=== PATIENT | female | born 1965 | race Caucasian/White ===

== ENCOUNTER → 2017-01-12 | Outpatient (CLI) | payer BC ==
--- NOTE | 2017-01-12 09:32 | FL ---
EXAMINATION TYPE: FL barium swallow DATE OF EXAM ORDERED: 01/12/2017 9:24 AM HISTORY: Dysphagia. COMPARISON: None. FINDINGS: The patient swallowed barium of these. The esophagus distended normally with air and bariu m without evidence of obstruction or constricting disease. There is a mild cricopharyngeus indentatio n the posterior esophagus. There are mild degenerative changes in the cervical spine. The mucosal pattern throughout the esophagus is unremarkable. There is no evidence of hiatal hernia. Limited views of the stomach are normal. Note is made of significant reflux. IMPRESSION: 1. MINIMAL PARAPHARYNGEAL ACHALASIA. 2. SIGNIFICANT REFLUX.
== END | disposition home or self-care (01) ==
LOC: RADFLWHC 08:42
PROVIDERS: ATTEND Surgery
DX: K22.0 Achalasia of cardia (principal); K21.9 Gastro-esophageal reflux disease without esophagitis
CPT/HCPCS: 74220

== ENCOUNTER 2017-01-26 09:50 | Day surgery (SDC) | payer BC ==
[2017-01-22 15:02] VITALS: BMI 30.2
[~2017-01-26 09:50] MED LIST: LACTATED RINGERS 1,000 ML IV SCH; LIDOCAINE 1% 20 ML VIAL (10MG/ML) FOR IV START INTRADERMA PRN
[2017-01-26 10:16] VITALS: RESP 16; TEMP 98.6
[2017-01-26] MEDS ORDERED: PROPOFOL 10 MG/ML 20 ML VIAL IV ONE (10:26)
[2017-01-26] MEDS ORDERED: LIDOCAINE 1% INJ 10MG/ML (20 ML MDV) ONE (10:26)
--- NOTE | 2017-01-26 10:28 | P.GSHP ---
History of Present Illness H&P Date: 01/26/17 Chief Complaint: GERD, screening colonoscopy 51-year-old female who's had some issues with GERD. Patient resents today for EGD. She is also having screening colonoscopy. He has a strong family history of colon cancer. - Constitutional Constitutional: Reports as per HPI Past Medical History Past Medical History: Fibromyalgia, GERD/Reflux, Hyperlipidemia Additional Past Medical History / Comment(s): diarrhea for 2 weeks hx migraines , palpitations, varicose veins, hx ulcer, hiatal hernia, frequent diarrhea, ankylosing spondylitis History of Any Multi-Drug Resistant Organisms: None Reported Past Surgical History: Orthopedic Surgery, Tonsillectomy Additional Past Surgical History / Comment(s): Eli fundoplication, reconstruction left ankle, manipulation rt shoulder Past Anesthesia/Blood Transfusion Reactions: Motion Sickness, Postoperative Nausea & Vomiting (PONV) Additional Past Anesthesia/Blood Transfusion Reaction / Comment(s): no hx blood transfusion Past Psychological History: No Psychological Hx Reported Smoking Status: Never smoker Past Alcohol Use History: Occasional Past Drug Use History: None Reported - Past Family History Father Family Medical History: Deep Vein Thrombosis (DVT) Mother Family Medical History: COPD Medications and Allergies Home Medications Medication Instructions Recorded Confirmed Type Ibuprofen [Motrin] 800 mg PO Q6HR PRN 02/06/16 01/22/17 History Multivit with Calcium,Iron,Min 1 each PO DAILY 02/06/16 01/22/17 History [Women's Daily Multivitamin] Omeprazole 40 mg PO DAILY 03/05/16 01/26/17 History Allergies Allergy/AdvReac Type Severity Reaction Status Date / Time aspirin Allergy Rash/Hives Verified 01/22/17 14:55 Penicillins Allergy Rash/Hives Verified 01/22/17 14:55 Sulfa (Sulfonamide Allergy Rash/Hives Verified 01/22/17 14:55 Antibiotics) lactose AdvReac Severe GI problems Verified 01/22/17 14:55 Surgical - Exam Vital Signs Temp Pulse Resp BP Pulse Ox 98.6 F 64 16 134/85 99 01/26/17 10:15 01/26/17 10:15 01/26/17 10:15 01/26/17 10:15 01/26/17 10:15 - General well developed, no distress - Eyes PERRL - ENT normal pinna - Neck no masses - Respiratory normal expansion - Cardiovascular Rhythm: regular - Abdomen Abdomen: soft, non tender Assessment and Plan Plan: GERD we'll perform EGD. We'll perform screening colonoscopy.
--- NOTE | 2017-01-26 10:46 | P.OP ---
Date of Procedure: 01/26/17 Preoperative Diagnosis: GERD Screening colonoscopy Postoperative Diagnosis: Mild antral gastritis No evidence of GE junction stricture Mild diverticulosis Procedure(s) Performed: EGD Colonoscopy Implants: Anesthesia: MAC Surgeon: Ron Jaquez Pathology: other (Antrum) Condition: stable Disposition: PACU Indications for Procedure: Operative Findings: Description of Procedure: The patient's placed on the endoscopy table in the lateral position. She received IV sedation. The gastric was placed oropharynx and passed into the esophagus and into the stomach. Scope was then placed through the pylorus. The first and second portion of the duodenum appeared normal. Scope was then brought back the antrum and this was mildly inflamed a biopsies performed. The scope was unretroflexed and remainder some appeared normal. The patient a previous fundal plication wrap and this appeared to be in the appropriate position. Due the patient's symptoms and dysphagia a 20 mm balloon was placed across the GE junction the balloon was able to slide back and forth around the GE junction. There is no evidence of any gastric inlet obstruction. The distal esophagus appeared normal. The proximal esophagus normal. Scope was withdrawn for patient. Next digital rectal exam was performed which revealed no abnormalities. The flexible colonoscope was then placed patient anus and passed throughout the entire colon. The ileocecal valve was visualized. The cecum, ascending and transverse colon appeared normal. In the descending; was mild diverticular changes. The scope was then brought back the rectum and this appeared normal. Scope was withdrawn for patient.
[2017-01-26 11:45] VITALS: BP 121/70; PULSE 67
== END 2017-01-26 11:44 | disposition home or self-care (01) ==
LOC: ORWHC2ENDO 09:50
PROVIDERS: ATTEND Surgery
DX: Z12.11 Encounter for screening for malignant neoplasm of colon (principal); K29.50 Unspecified chronic gastritis without bleeding; K57.30 Diverticulosis of large intestine without perforation or abscess without bleeding; R13.10 Dysphagia, unspecified; M79.7 Fibromyalgia; E78.5 Hyperlipidemia, unspecified; R19.7 Diarrhea, unspecified; K21.9 Gastro-esophageal reflux disease without esophagitis; Z80.0 Family history of malignant neoplasm of digestive organs; Z79.899 Other long term (current) drug therapy; Z88.6 Allergy status to analgesic agent; Z88.0 Allergy status to penicillin; Z88.2 Allergy status to sulfonamides; Z98.890 Other specified postprocedural states
CPT/HCPCS: 88305; 88342; 43239; 43249; J2001; J2704; C1726; G0105

== ENCOUNTER → 2017-01-28 | Outpatient (CLI) | payer BC ==
--- NOTE | 2017-01-28 11:29 | MR ---
MR pelvis without contrast HISTORY: Pelvic pain No comparisons Multiplanar multisequence imaging through the pelvis. Bone marrow signal is maintained. Sacroiliac joints show no erosions, ankylosis, or marrow edema. Td e fluid is present within the pelvis. Uterus and ovaries are within normal limits. Some free fluid is noted. The colon and small bowel show wall thickening. No evident inguinal or pelvic adenopathy. Deg enerative disc changes at the lumbosacral junction. IMPRESSION: Correlate for enteritis, colitis, consider gastroenterology consult. There is some free f luid in the pelvis.
== END | disposition home or self-care (01) ==
LOC: RADMRIMAIN 10:12
PROVIDERS: ATTEND Internal Medicine Rheumatology
DX: K52.9 Noninfective gastroenteritis and colitis, unspecified (principal); H20.13 Chronic iridocyclitis, bilateral; M54.5 Low back pain; Z15.89 Genetic susceptibility to other disease
CPT/HCPCS: 72195

== ENCOUNTER → 2018-01-12 | Outpatient (CLI) | payer BC ==
[2018-01-12 07:57] LABS: HGB 12.7 gm/dL (11.4-16.0); MCH 31.8 pg (25.0-35.0); MCHC 33.4 g/dL (31.0-37.0); MCV 95.2 fL (80.0-100.0); Mean Platelet Volume 7.1; Platelet Count 349 k/uL (150-450); RBC 3.99 m/uL (3.80-5.40); RDW 12.5 % (11.5-15.5); WBC 6.4 k/uL (3.8-10.6)
[2018-01-12 08:00] LABS: Appearance,Urine Cloudy (Clear); Bilirubin,Urine Negative (Negative); Blood,Urine Negative (Negative); Color,Urine Yellow; Glucose,Urine (UA) Negative (Negative); Ketones,Urine Negative (Negative); Leukocyte Esterase,Urine Large (Negative); Mucus,Urine Occasional /hpf; Nitrite,Urine Negative (Negative); Protein,Urine Negative (Negative); RBC,Urine 5 /hpf (0-5); Specific Gravity,Urine 1.018 (1.001-1.035); Squamous Epithelial Cell,Urine 3 /hpf (0-4); Urobilinogen,Urine <2.0 mg/dL (<2.0); WBC,Urine 21 /hpf (0-5)
[2018-01-12 08:20] LABS: ALT 27 U/L (9-52); AST 25 U/L (14-36); Albumin 4.7 g/dL (3.5-5.0); Alkaline Phosphatase 69 U/L (38-126); Anion Gap 12 mmol/L; Blood Urea Nitrogen 17 mg/dL (7-17); Calcium 9.6 mg/dL (8.4-10.2); Carbon Dioxide 29 mmol/L (22-30); Chloride 104 mmol/L (98-107); Cholesterol 277 mg/dL (<200); Glucose 93 mg/dL (74-99); HDL Cholesterol 63 mg/dL (40-60); LDL Cholesterol,Calculated 182 mg/dL (0-99); Potassium 4.4 mmol/L (3.5-5.1); Sodium 145 mmol/L (137-145); Total Bilirubin 0.5 mg/dL (0.2-1.3); Total Protein 7.5 g/dL (6.3-8.2); Triglycerides 159 mg/dL (<150)
--- NOTE | 2018-01-12 08:34 | XR ---
EXAMINATION TYPE: XR chest 2V DATE OF EXAM: 01/12/2018 COMPARISON: NONE HISTORY: Palpitations, heart disease TECHNIQUE: Frontal and lateral views of the chest are obtained. FINDINGS: There is no focal air space opacity, pleural effusion, or pneumothorax seen. The cardiac silhouette size is within normal limits. There is a spinal curvature. Degenerative disc disease not ed in the visualized spine. The osseous structures are intact. IMPRESSION: No acute cardiopulmonary process.
== END | disposition home or self-care (01) ==
LOC: LABWHC1 07:18
PROVIDERS: ATTEND Family Medicine
DX: R00.2 Palpitations (principal); I25.10 Atherosclerotic heart disease of native coronary artery without angina pectoris; R60.9 Edema, unspecified
CPT/HCPCS: 36415; 71046; 80053; 80061; 81001; 84439; 84443; 84484; 85027; 85379

== ENCOUNTER → 2018-01-26 | Outpatient (CLI) | payer BC | END | disposition home or self-care (01) | LOC: RADECHMAIN 12:13 | PROVIDERS: ATTEND Family Medicine | DX: R00.2 Palpitations (principal); I25.110 Atherosclerotic heart disease of native coronary artery with unstable angina pectoris | CPT/HCPCS: 93225; 93226 ==

== ENCOUNTER → 2018-02-01 | Outpatient (CLI) | payer BC | END | disposition home or self-care (01) | LOC: LABWHC1 10:42 | PROVIDERS: ATTEND Internal Medicine Endocrinology, Diabetes & Metabolism | DX: E03.8 Other specified hypothyroidism (principal) | CPT/HCPCS: 36415; 84443 ==

== ENCOUNTER → 2018-05-24 | Outpatient (CLI) | payer BC ==
--- NOTE | 2018-05-25 09:20 | MM ---
Reason for exam: screening (asymptomatic). Last mammogram was performed 1 year ago. History: Patient is postmenopausal. Took hormonal contraceptives for 9 months. Physical Findings: A clinical breast exam by your physician is recommended on an annual basis and results should be correlated with mammographic findings. MG Screening Mammo w CAD Bilateral CC and MLO view(s) were taken. Prior study comparison: May 18, 2017, bilateral MG screening mammo w CAD. May 12, 2016, bilateral MG screening mammo w CAD. The breast tissue is extremely dense which could obscure a lesion on mammography. Benign calcifications in the left breast. There is chronic nodularity in the left breast. No significant changes when compared with prior studies. ASSESSMENT: Benign, BI-RAD 2 RECOMMENDATION: Routine screening mammogram of both breasts in 1 year.
== END ==
LOC: RADMAMWWP 07:24
PROVIDERS: ATTEND Family Medicine
DX: Z12.31 Encounter for screening mammogram for malignant neoplasm of breast (principal)
CPT/HCPCS: 77067

== ENCOUNTER → 2018-08-18 | Outpatient (CLI) | payer BC ==
--- NOTE | 2018-08-18 15:52 | MR ---
EXAMINATION TYPE: MR lumbar spine wo con DATE OF EXAM: 08/18/2018 COMPARISON: HISTORY: Radiculopathy CONTRAST: 0 mL intravenous Gadavist. TECHNIQUE: Multiplanar, multisequence images of the lumbar spine were acquired. FINDINGS: Cord terminates at the L1-L2 level. L5-S1: There are central focal bulge with mild anterior thecal sac compression. No AP spinal canal st enosis or neural foraminal stenosis present. Posterior disc space narrowing is present. L4-L5: Mild symmetric disc bulge is anterior thecal sac contact. No spinal canal stenosis or neural f oraminal stenosis present. There is some left facet hypertrophy with ligamentum flavum laxity. L3-L4: No significant disc bulge or disc herniation. No spinal canal stenosis. No foraminal stenosi s. Mild facet hypertrophy and ligamentum flavum laxity of posterior lateral thecal sac compression L2-L3: No significant disc bulge or disc herniation. No spinal canal stenosis. No foraminal stenosi s. L1-L2: No significant disc bulge or disc herniation. No spinal canal stenosis. No foraminal stenosi s. T12-L1: No significant disc bulge or disc herniation. No spinal canal stenosis. No foraminal stenos is. IMPRESSION: 1. Disc space degenerative changes L5-S1 with some central bulging with mild anterior thecal sac comp ression. No stenosis is present. 2. Facet hypertrophy of ligamentum flavum laxity L4-5 on the right L3-4 bilaterally
== END | disposition home or self-care (01) ==
LOC: RADMRIMAIN 08:43
PROVIDERS: ATTEND Family Medicine
DX: M51.17 Intervertebral disc disorders with radiculopathy, lumbosacral region (principal); M47.27 Other spondylosis with radiculopathy, lumbosacral region; G95.29 Other cord compression; M24.28 Disorder of ligament, vertebrae
CPT/HCPCS: 72148

== ENCOUNTER 2018-11-26 09:53 | Emergency (ER) | payer BC ==
[2018-11-26 09:58] VITALS: RESP 18
[2018-11-26 11:03] LABS: Basophils # (A) 0.1 k/uL (0-0.2); Basophils % (A) 0 %; Eosinophils # (A) 0.4 k/uL (0-0.7); Eosinophils % (A) 3 %; HCT 37.3 % (34.0-46.0); Lymphocytes # (A) 2.5 k/uL (1.0-4.8); Lymphocytes % (A) 19 %; MCH 31.7 pg (25.0-35.0); MCHC 34.8 g/dL (31.0-37.0); MCV 91.1 fL (80.0-100.0); Mean Platelet Volume 8.9; Monocytes # (A) 0.6 k/uL (0-1.0); Monocytes % (A) 5 %; Neutrophils # (A) 9.7 k/uL (1.3-7.7); Neutrophils % (A) 72 %; Platelet Count 360 k/uL (150-450); RDW 14.1 % (11.5-15.5); WBC 13.4 k/uL (3.8-10.6)
[2018-11-26 11:14] LABS: Anion Gap 7 mmol/L; Blood Urea Nitrogen 12 mg/dL (7-17); Calcium 9.5 mg/dL (8.4-10.2); Carbon Dioxide 30 mmol/L (22-30); Chloride 103 mmol/L (98-107); Glucose 95 mg/dL (74-99); Potassium 4.3 mmol/L (3.5-5.1); Sodium 140 mmol/L (137-145)
--- NOTE | 2018-11-26 11:25 | ED ---
Skin/Abscess/FB HPI - General Source: patient, RN notes reviewed Mode of arrival: ambulatory Limitations: no limitations <Oneil Allen - Last Filed: 11/26/18 11:57> <Nestor Fuller - Last Filed: 11/26/18 12:06> - General Chief complaint: Skin/Abscess/Foreign Body Stated complaint: Infection in Breast Time Seen by Provider: 11/26/18 10:09 - History of Present Illness Initial comments: 53-year-old female presents emergency Department with chief complaint of right breast pain and redness. Patient states that this started yesterday worsened today. Patient states that she's had no prior surgeries or symptoms like this in the past. She denies any known fever. Patient states is normal multiple discharge or retraction. Patient states she does have a mammogram scheduled for Thursday and states that she has not had one recently. Patient denies any shortness breath, cough or chest congestion. (Oneil Allen) - Related Data Home Medications Medication Instructions Recorded Confirmed Multivit with Calcium,Iron,Min 1 tab PO DAILY 02/06/16 11/26/18 [Women's Daily Multivitamin] Apremilast [Otezla] 60 mg PO DAILY 11/26/18 11/26/18 Atorvastatin [Lipitor] 40 mg PO HS 11/26/18 11/26/18 Biotin 5 mg PO DAILY 11/26/18 11/26/18 Calcium Carbonate [Calcium] 600 mg PO DAILY 11/26/18 11/26/18 Cyanocobalamin (Vitamin B-12) 1,000 mcg PO DAILY 11/26/18 11/26/18 [Vitamin B-12] Gabapentin [Neurontin] 300 mg PO HS 11/26/18 11/26/18 Levothyroxine Sodium [Synthroid] 50 mcg PO DAILY 11/26/18 11/26/18 Lysine [l-Lysine] 500 mg PO DAILY 11/26/18 11/26/18 Secukinumab [Cosentyx Pen] 300 mg SQ QMONTH 11/26/18 11/26/18 Allergies Allergy/AdvReac Type Severity Reaction Status Date / Time aspirin Allergy Rash/Hives Verified 11/26/18 10:25 Penicillins Allergy Rash/Hives Verified 11/26/18 10:25 Sulfa (Sulfonamide Allergy Rash/Hives Verified 11/26/18 10:25 Antibiotics) lactose AdvReac Severe GI problems Verified 11/26/18 10:25 Review of Systems ROS Other: All systems not noted in ROS Statement are negative. <Oneil Allen - Last Filed: 11/26/18 11:57> ROS Other: All systems not noted in ROS Statement are negative. <Nestor Fuller - Last Filed: 11/26/18 12:06> ROS Statement: Those systems with pertinent positive or pertinent negative responses have been documented in the HPI. Past Medical History Past Medical History: Fibromyalgia, GERD/Reflux, Hyperlipidemia Additional Past Medical History / Comment(s): hx migraines, palpitations, varicose veins, hx ulcer, hiatal hernia, frequent diarrhea, ankylosing spondylitis History of Any Multi-Drug Resistant Organisms: None Reported Past Surgical History: Orthopedic Surgery, Tonsillectomy Additional Past Surgical History / Comment(s): Eli fundoplication, recon struction left ankle, manipulation rt shoulder, Past Anesthesia/Blood Transfusion Reactions: Motion Sickness, Postoperative Nausea & Vomiting (PONV) Past Psychological History: No Psychological Hx Reported Smoking Status: Never smoker Past Alcohol Use History: Occasional Past Drug Use History: None Reported - Past Family History Father Family Medical History: Deep Vein Thrombosis (DVT) Mother Family Medical History: COPD <Oneil Allen - Last Filed: 11/26/18 11:57> General Exam Limitations: no limitations General appearance: alert, in no apparent distress Head exam: Present: atraumatic, normocephalic, normal inspection Eye exam: Present: normal appearance, PERRL, EOMI. Absent: scleral icterus, conjunctival injection, periorbital swelling ENT exam: Present: normal exam, normal oropharynx, mucous membranes moist Neck exam: Present: normal inspection, full ROM. Absent: tenderness, meni ngismus, lymphadenopathy Respiratory exam: Present: normal lung sounds bilaterally. Absent: respiratory distress, wheezes, rales, rhonchi, stridor Cardiovascular Exam: Present: regular rate, normal rhythm, normal heart sounds. Absent: systolic murmur, diastolic murmur, rubs, gallop, clicks Skin exam: Present: warm, dry, intact, normal color, other (Right breast there is erythema noted around the areola, , no nipple retraction or palpable abscess.). Absent: rash <Oneil Allen - Last Filed: 11/26/18 11:57> Course Vital Signs 11/26/18 09:55 Temperature 98 F Pulse Rate 63 Respiratory 18 Rate Blood Pressure 150/96 O2 Sat by Pulse 99 Oximetry Medical Decision Making - Lab Data Result diagrams: 11/26/18 10:50 11/26/18 10:50 <Oneil Allen - Last Filed: 11/26/18 11:57> - Lab Data Result diagrams: 11/26/18 10:50 11/26/18 10:50 <Nestor Fuller - Last Filed: 11/26/18 12:06> - Medical Decision Making 53-year-old female presented emergency department for swelling, pain or breast. Patient and ultrasound shows a 3 x [address] Fuller did discuss case with Dr. Phil Avila who will see the patient now and determine treatment. (Oneil Allen) 53-year-old female presenting with pain and swelling of the right breast. On exam there is erythema, induration, tenderness to palpation. Ultrasound report reviewed, 3 x 1.5 cm area concerning for abscess with hypervascularity. Patient is afebrile and otherwise well-appearing. She does have a mildly elevated white blood cell count at 13. I discussed case with Dr. Claudio, she is in the office and will see the patient immediately. Patient will be discharged and should head directly to the breast surgeon's office. (Nestor Fuller) - Lab Data Lab Results 11/26/18 11/26/18 Range/Units 10:50 10:50 WBC 13.4 H (3.8-10.6) k/uL RBC 4.10 (3.80-5.40) m/uL Hgb 13.0 (11.4-16.0) gm/dL Hct 37.3 (34.0-46.0) % MCV 91.1 (80.0-100.0) fL MCH 31.7 (25.0-35.0) pg MCHC 34.8 (31.0-37.0) g/dL RDW 14.1 (11.5-15.5) % Plt Count 360 (150-450) k/uL Neutrophils % 72 % Lymphocytes % 19 % Monocytes % 5 % Eosinophils % 3 % Basophils % 0 % Neutrophils # 9.7 H (1.3-7.7) k/uL Lymphocytes # 2.5 (1.0-4.8) k/uL Monocytes # 0.6 (0-1.0) k/uL Eosinophils # 0.4 (0-0.7) k/uL Basophils # 0.1 (0-0.2) k/uL Sodium 140 (137-145) mmol/L Potassium 4.3 (3.5-5.1) mmol/L Chloride 103 (98-107) mmol/L Carbon Dioxide 30 (22-30) mmol/L Anion Gap 7 mmol/L BUN 12 (7-17) mg/dL Creatinine 0.69 (0.52-1.04) mg/dL Est GFR (CKD-EPI)AfAm >90 (>60 ml/min/1.73 sqM) Est GFR (CKD-EPI)NonAf >90 (>60 ml/min/1.73 sqM) Glucose 95 (74-99) mg/dL Calcium 9.5 (8.4-10.2) mg/dL Disposition Is patient prescribed a controlled substance at d/c from ED?: No Time of Disposition: 11:58 <Oneil Allen M - Last Filed: 11/26/18 11:57> <Nestor Fuller - Last Filed: 11/26/18 12:06> Clinical Impression: Breast abscess Disposition: HOME SELF-CARE Condition: Stable Instructions (If sedation given, give patient instructions): Abscess (ED) Additional Instructions: Please return to the Emergency Department if symptoms worsen or any other concerns. Referrals: Austin Cardenas DO [Primary Care Provider] - 1-2 days Mirian Claudio MD [STAFF PHYSICIAN] - 1-2 days
--- NOTE | 2018-11-26 11:46 | USB ---
Reason for exam: clinical finding. History: Patient is postmenopausal. Took hormonal contraceptives for 9 months. US Breast Limited RT Right limited breast ultrasound including focal area of concern, retroareolar and axilla demonstrates a 3.0 x 1.5cm hypoechoic, vascular lesion at 12 o'clock, questionable abscess. ASSESSMENT: Probably benign, BI-RAD 3 RECOMMENDATION: Surgical consultation of the right breast.
[2018-11-26 12:05] VITALS: BP 134/82; PULSE 67; TEMP 97.8
== END 2018-11-26 12:04 | disposition home or self-care (01) ==
LOC: EC 09:53
DX: N61.1 Abscess of the breast and nipple (principal); D72.829 Elevated white blood cell count, unspecified; M79.7 Fibromyalgia; E78.5 Hyperlipidemia, unspecified; Z79.890 Hormone replacement therapy; Z79.899 Other long term (current) drug therapy; Z88.6 Allergy status to analgesic agent; Z88.0 Allergy status to penicillin; Z88.2 Allergy status to sulfonamides; Z91.011 Allergy to milk products
CPT/HCPCS: 36415; 80048; 85025; 99284

== ENCOUNTER → 2018-11-26 | Outpatient (CLI) | payer BC ==
[2018-11-26 12:45] VITALS: BP 146/93; PULSE 62; RESP 18; TEMP 94.6; BMI 29.8
--- NOTE | 2018-11-26 13:43 | P.GSHP ---
History of Present Illness H&P Date: 11/26/18 Chief Complaint: pian in her right breast Patient is a 53 year old white female with a complaint of pain in her right breast. The patient is seen in consultation for Dr. Estes and Dr. Cardenas. The states the right breast became red and called Dr. Doyle and went to the ER. The patient had an ultrasound and was sent here. Patient has had intermittent hot and cold for the last week. The patient has no discharge or drainage from her breast. She is in pain now. She has had no breast infections in her breast in her past. She has never had any breast surgery or trauma to her breasts. No nipple discharge or changes for which she is concerned. Her last mammogram about one year ago, and was told no problems. Ultrasound of the right breast 3 by 1.5 cm lesion possible abscess however been reviewed by radiology before this may well just be a phlegmon not organized at this time into a true abscess. Patient's white blood cell count in the emergency room 13.4. Family History: paternal 7 siblings at 53 with stomach cancer father: ulcer disease sister: MS parents: Dementia, Parkinson's disease Hormonal History: menarche: 15 : 4, 3 children, breast fed: yes menopause: started at 33 ended at 48 BCP: 9 years hormones: none (sister had a CVA related to stroke) Past surgical history: 1. tonsil 2. manipulation of the right shoulder 3. gallbladder 4. Eli procedure which reversed on its own 5. Bilateral knee surgery 6. Reconstruction of left ankle Past medical history: 1. Ankylosing spondylitis 2. Polyarticular arthritis 3. Fibromyalgia 4. Psoriatic arthritis She follows with rheumatiligst, recently blurred vision. Social History: smoke: none Alcohol: A glass of wine every other night Drugs: Negative, has a marijuana card but does not use it - Constitutional Constitutional: Reports sweats - EENT Eyes: bilateral blurred vision, bilateral pain Ears: bilateral: decreased hearing, deny: tinnitus Ears, nose, mouth and throat: Reports headache - Breasts Breasts: bilateral: as per HPI - Cardiovascular Cardiovascular: Reports palpitations, Denies chest pain, Denies shortness of breath - Respiratory Comment: sinus infection 1 week ago just finished antibiotics and prednisone Respiratory: Denies cough, Denies 7 - Gastrointestinal Comment: PUD Gastrointestinal: Reports diarrhea, Denies abdominal pain, Denies nausea, Denies vomiting - Genitourinary (Female) Genitourinary: Denies dysuria, Denies hematuria - Menstruation Menstruation: Reports postmenopausal - Musculoskeletal Comment: arthritis - Integumentary Comment: Psychiatric arthritis, uses otezla - Neurological Neurological: Reports numbness, Reports weakness - Psychiatric Psychiatric: Denies anxiety, Denies depression - Endocrine Comment: hypothyroid Endocrine: Reports fatigue, Denies weight change - Hematologic/Lymphatic Comment: none - Allergic/Immunologic Allergic/Immunologic: Reports seasonal allergies Past Medical History Past Medical History: Fibromyalgia, GERD/Reflux, Hyperlipidemia Additional Past Medical History / Comment(s): hx migraines, palpitations, cosmo icose veins, hx ulcer, hiatal hernia, frequent diarrhea, ankylosing spondylitis History of Any Multi-Drug Resistant Organisms: None Reported Past Surgical History: Orthopedic Surgery, Tonsillectomy Additional Past Surgical History / Comment(s): Eli fundoplication, reconstruction left ankle, manipulation rt shoulder, Past Anesthesia/Blood Transfusion Reactions: Motion Sickness, Postoperative Nausea & Vomiting (PONV) Past Psychological History: No Psychological Hx Reported Smoking Status: Never smoker Past Alcohol Use History: Occasional Past Drug Use History: None Reported - Past Family History Father Family Medical History: Deep Vein Thrombosis (DVT) Mother Family Medical History: COPD Medications and Allergies Home Medications Medication Instructions Recorded Confirmed Type Multivit with Calcium,Iron,Min 1 tab PO DAILY 02/06/16 11/26/18 History [Women's Daily Multivitamin] Amitriptyline HCl 10 mg PO HS 11/26/18 11/26/18 History Apremilast [Otezla] 60 mg PO DAILY 11/26/18 11/26/18 History Atorvastatin [Lipitor] 40 mg PO HS 11/26/18 11/26/18 History Biotin 5 mg PO DAILY 11/26/18 11/26/18 History Calcium Carbonate [Calcium] 600 mg PO DAILY 11/26/18 11/26/18 History Cyanocobalamin (Vitamin B-12) 1,000 mcg PO DAILY 11/26/18 11/26/18 History [Vitamin B-12] Gabapentin [Neurontin] 500 mg PO HS 11/26/18 11/26/18 History Levothyroxine Sodium [Synthroid] 50 mcg PO DAILY 11/26/18 11/26/18 History Lysine [l-Lysine] 500 mg PO DAILY 11/26/18 11/26/18 History Secukinumab [Cosentyx Pen] 300 mg SQ QMONTH 11/26/18 11/26/18 History Allergies Allergy/AdvReac Type Severity Reaction Status Date / Time aspirin Allergy Rash/Hives Verified 11/26/18 12:30 Penicillins Allergy Rash/Hives Verified 11/26/18 12:30 Sulfa (Sulfonamide Allergy Rash/Hives Verified 11/26/18 12:30 Antibiotics) lactose AdvReac Severe GI problems Verified 11/26/18 12:30 Surgical - Exam Vital Signs Temp Pulse Resp BP Pulse Ox 94.6 F L 62 18 146/93 100 11/26/18 12:35 11/26/18 12:35 11/26/18 12:35 11/26/18 12:35 11/26/18 12:35 BMI 29.8 - General well developed, well nourished, no distress - Eyes normal ocular movement - ENT no hearing loss, no congestion - Neck trachea midline - Respiratory normal respiratory effort, clear to auscultation - Cardiovascular Rhythm: regular Heart Sounds: normal: S1, S2 - Abdomen Abdomen: soft, non tender, no guarding, no rigid, no rebound - Integumentary normal turgor - Neurologic no disoriented, no combative - Musculoskeletal normal gait, normal posture - Psychiatric oriented to time, oriented to person, oriented to place, speech is normal, memory intact breast exam: Right breast: Multi-positional exam reveals erythema at the periareolar region with some firmness which is approximately 3-4 cm in size Right axilla: No adenopathy of concern Left breast: Multi-positional exam no dominant masses or nodules of concern Left axilla: No adenopathy of concern Results Ultrasound review with radiology who cannot ascertain if the area of concern in the right breast is an abscess or a phlegmon Assessment and Plan Assessment: Impression: 1. Swollen right breast with erythema and fullness, ultrasound phlegmon versus abscess 2. Fibrocystic breast changes 3. Breast pain 4. Psoriatic arthritis 5. Fibromyalgia 6. ankylosing spondylitis 7. back pain The patient's case was discussed with Dr. Filipe Caro from infectious disease. Secondary to the fact that there is not a clear abscess to drain we are going to place the patient underwent clindamycin. We discussed with the patient if the pain gets worse, if the redness increases, if she starts having elevated fevers, that she should present back to the emergency department. At this time there is nothing specific to drain. Plan: 1. Cliindamycin 600 TID 2. follow up next week but sooner if any question or problem 3. medical managment of medical conditions 4. Follow up one week CC: DR. Doyle
[2018-11-26 16:09] LABS: Appearance,Urine Clear (Clear); Bilirubin,Urine Negative (Negative); Blood,Urine Negative (Negative); Color,Urine Light Yellow; Glucose,Urine (UA) Negative (Negative); Ketones,Urine Negative (Negative); Leukocyte Esterase,Urine Negative (Negative); Nitrite,Urine Negative (Negative); Protein,Urine Negative (Negative); Specific Gravity,Urine 1.007 (1.001-1.035); Urobilinogen,Urine <2.0 mg/dL (<2.0)
== END ==
LOC: WWCWWP 12:14
PROVIDERS: ATTEND Surgery
DX: M54.5 Low back pain (principal)
CPT/HCPCS: 81003; 87086

== ENCOUNTER → 2018-11-29 | Outpatient (CLI) | payer BC ==
--- NOTE | 2018-11-30 08:03 | MM ---
Reason for exam: clinical finding. Last mammogram was performed 6 months ago. History: Patient is postmenopausal. Took hormonal contraceptives for 9 months. Indicated problem(s): pain in the right breast. Physical Findings: Nurse Summary: 2cm nodule in the right breast at 12 o'clock (nurse mj). MG 3D Diag Mammo W/Cad TODD Bilateral CC and MLO view(s) were taken. Prior study comparison: May 24, 2018, bilateral MG screening mammo w CAD. May 18, 2017, bilateral MG screening mammo w CAD. Finding: There is an intermediate concern, suspicious 10 mm oval mass in the upper outer quadrant of the right breast consistent with probable node. Skin thickening in the right breast. These results were verbally communicated with the patient and result sheet given to the patient on 11/29/18. ASSESSMENT: Incomplete: need additional imaging evaluation, BI-RAD 0 RECOMMENDATION: Ultrasound of the right breast.
== END | disposition home or self-care (01) ==
LOC: RADMAMWWP 13:51
PROVIDERS: ATTEND Obstetrics & Gynecology
DX: N64.4 Mastodynia (principal)
CPT/HCPCS: 77062; 77066

== ENCOUNTER → 2018-11-30 | Outpatient (CLI) | payer BC ==
--- NOTE | 2018-11-30 08:05 | USB ---
Reason for exam: additional evaluation requested from abnormal screening. History: Patient is postmenopausal. Took hormonal contraceptives for 9 months. US Breast RT Right complete breast ultrasound includes all four quadrants, the retroareolar region and axilla. Finding demonstrates a 4.7 x 0.8 x 1.9cm irregular, solid, hypoechoic lesion at 12 o'clock, a 0.8 x 0.4 x 0.4cm oval lymph node at 9 o'clock and a 0.7 x 0.6 x 0.7cm oval lymph node at 10 o'clock. These results were verbally communicated with the patient and result sheet given to the patient on 11/30/18. ASSESSMENT: Probably benign, BI-RAD 3 RECOMMENDATION: Ultrasound of the right breast in 1 month. (4-6 weeks) Manage patient on a clinical basis.
== END ==
LOC: RADUSWWP 07:09
PROVIDERS: ATTEND Radiology Diagnostic Radiology
DX: R92.8 Other abnormal and inconclusive findings on diagnostic imaging of breast (principal)

== ENCOUNTER → 2018-12-03 | Outpatient (CLI) | payer BC ==
[2018-12-03 14:05] VITALS: BP 119/82; PULSE 66; RESP 18; TEMP 97.8; BMI 29.6
--- NOTE | 2018-12-03 14:35 | P.PN ---
Subjective Progress Note Date: 12/03/18 Principal diagnosis: Tatum is a 53-year-old white female who was seen on 4518 with a right breast swelling. The concern on ultrasound was whether this represented a phlegmon versus an abscess and she was treated with antibiotics/clindamycin. The patient has improved and the swelling has gone down. The patient states she has no elevated fevers. She has no drainage from her breast. The patient did have a bilateral mammogram performed on 4018. There was an intermediate area of concern in the outer quadrant of the right breast. The patient was then recommended to have another ultrasound performed this revealed a 4.7 x 1.9 cm irregular solid lesion at 12:00 and 8.4 x 0.4 cm lymph node at 9:00 this was felt to be probably benign but repeat ultrasound in 4 weeks was recommended. The ultrasound was reviewed with Dr. Whittaker from radiology who believes that the area seen on the ultrasound is most likely consistent with a phlegmon and a repeat ultrasound in 4 weeks is recommended. The patient has been prescribed Cosentyx for her arthritis, she has been on this for 6 months. She is wondering if she can continue this with a possible smoldering infection. I have recommended that she further adress this question with her boiler erector, however at the present time I do believe she is recovering from a subacute breast infection. Physical exam: Lungs: Clear Heart: Regular rate and rhythm Breasts: Marked decrease in size of any swelling in the periareolar region, no erythema on today's exam, minimal tenderness to palpation Right axilla: No adenopathy of concern Impression: 1. Resolving right breast abscess/phlegmon 2. Nothing to drain at the present time 3. Patient to continue clindamycin 4. Urine culture negative 5. Ankylosing spondylitis 6. Polyarticular arthritis 7. Fibromyalgia 8. Psoriatic arthritis Plan: 1. Continue present therapy of the breast 2. Repeat right breast ultrasound in 4 weeks with examination at that time 3. If the area in the breast becomes more swollen or tender she develops any fevers or concerns she should call immediately 4. Continue to reviewed treatment of arthritis as per boiler erector 5. Consider infectious disease consultation Cc: Dr. Cardenas, Dr. Doyle Objective - Vital Signs Vital signs: Vital Signs Temp 97.8 F 12/03/18 14:02 Pulse 66 12/03/18 14:02 Resp 18 12/03/18 14:02 BP 119/82 12/03/18 14:02 Pulse Ox 99 12/03/18 14:02 Intake & Output 12/02/18 12/03/18 12/03/18 18:59 06:59 18:59 Weight 73.482 kg
== END | disposition home or self-care (01) ==
LOC: WWCWWP 13:52
PROVIDERS: ATTEND Surgery
DX: Z53.9 Procedure and treatment not carried out, unspecified reason (principal)

== ENCOUNTER → 2019-01-11 | Outpatient (CLI) | payer BC ==
--- NOTE | 2019-01-11 12:22 | USB ---
Reason for exam: follow-up at short interval from prior study. History: Patient is postmenopausal. Took hormonal contraceptives for 9 months. Physical Findings: Nurse did not find any significant physical abnormalities on exam. US Breast RT Right complete breast ultrasound includes all four quadrants, the retroareolar region and axilla. Finding demonstrates a 2.5 x 1.4 x 1.1cm hypoechoic, vascular lesion at 12 o'clock similar to the prior despite antibiotics, aspiration with potential biopsy, evaluate fluid at time of aspiration and a 0.6 x 0.5 x 0.4cm hypoechoic, vascular lymph node at 11 o'clock. These results were verbally communicated with the patient and result sheet given to the patient on 01/11/19. ASSESSMENT: Suspicious, BI-RAD 4 RECOMMENDATION: Aspiration of the right breast. Called with mammographic findings and has scheduled an appointment for the patient for 01/14/19 at 3:[address] Claudio. Aspiration scheduled for 02/01/19 at 12:20. PRELIMINARY REPORT CALLED AND FAXED TO DR. CLAUDIO ON 01/11/19.
== END ==
LOC: RADUSWWP 07:10
PROVIDERS: ATTEND Surgery
DX: R92.8 Other abnormal and inconclusive findings on diagnostic imaging of breast (principal)

== ENCOUNTER → 2019-01-14 | Outpatient (CLI) | payer BC ==
[2019-01-14 15:30] VITALS: BP 137/88; PULSE 82; RESP 18; TEMP 98.1; BMI 29.6
--- NOTE | 2019-01-14 16:09 | P.GSHP ---
History of Present Illness H&P Date: 01/14/19 Chief Complaint: Probable abscess right breast The patient is a 53-year-old white female who was initially seen on 4519 with a complaint of pain in her right breast. The patient had been seen in the emergency room and was noted to have a lump in her breast which on ultrasound was uncertain whether this was a phlegmon or an abscess. She was treated with clindamycin and the pain has decreased but she has not had resolution of the area. A repeat ultrasound was performed and 520 119. This revealed that the area of concern is persistent and recommendation is for aspiration/biopsy. Family history: Paternal 7 siblings at 53 with stomach cancer Father: Ulcer disease Sister: Multiple sclerosis Appearance: Dementia, Parkinson's disease Past surgical history: 1. Tonsils 2. Manipulation of right shoulder 3. Gallbladder 4. Eli which reversed on its own 5. Bilateral knee surgery 6. Reconstruction of left ankle Past medical history: 1. Ankylosing spondylitis 2.. Polyarticular arthritis 3. Fibromyalgia 4. Psoriatic arthritis she follows with back winder, recently. Vision The patient was told that yesterday that she has cervical spinal syrnix and she was recommended to go to a neurosurgeon for surgery with respect to this. The patient states today she noted bright red blood per rectum. She is having crampy abdominal pain which started today. She is on otezla, per DR. Rodriges [facility]. She has not had any recent endoscopic evaluation. Social History: smoke: none Alcohol: a glass of wine every other night drugs: Negative has a marijuana card but does not use it - Constitutional Constitutional: Reports sweats - EENT Eyes: denies blurred vision, denies pain Ears: deny: decreased hearing, tinnitus Ears, nose, mouth and throat: Reports headache - Breasts Breasts: bilateral: as per HPI - Cardiovascular Comment: Palpitations - Respiratory Respiratory: Denies cough, Denies 7 - Gastrointestinal Comment: Red blood per rectum - Genitourinary (Female) Genitourinary: Denies dysuria, Denies hematuria - Menstruation Menstruation: Reports postmenopausal - Musculoskeletal Comment: Ankylosing spondylitis psoratiac arthritis Osteoarthritis Fibromyalgia Cervical spine syrnix - Integumentary Comment: psoriatic arthritis Integumentary: Denies pruritus, Denies rash - Neurological Neurological: Reports numbness, Reports weakness - Psychiatric Psychiatric: Denies anxiety, Denies depression - Endocrine Comment: hypothyroid - Hematologic/Lymphatic Comment: none - Allergic/Immunologic Allergic/Immunologic: Reports seasonal allergies Past Medical History Past Medical History: Fibromyalgia, GERD/Reflux, Hyperlipidemia Additional Past Medical History / Comment(s): hx migraines, palpitations, varicose veins, hx ulcer, hiatal hernia, frequent diarrhea, ankylosing spondylitis History of Any Multi-Drug Resistant Organisms: None Reported Past Surgical History: Orthopedic Surgery, Tonsillectomy Additional Past Surgical History / Comment(s): Eli fundoplication, reconstruction left ankle, manipulation rt shoulder, Past Anesthesia/Blood Transfusion Reactions: Motion Sickness, Postoperative Nausea & Vomiting (PONV) Past Psychological History: No Psychological Hx Reported Smoking Status: Never smoker Past Alcohol Use History: Occasional Past Drug Use History: None Reported - Past Family History Father Family Medical History: Deep Vein Thrombosis (DVT) Mother Family Medical History: COPD Medications and Allergies Home Medications Medication Instructions Recorded Confirmed Type Multivit with Calcium,Iron,Min 1 tab PO DAILY 02/06/16 01/14/19 History [Women's Daily Multivitamin] Amitriptyline HCl 10 mg PO HS 11/26/18 01/14/19 History Apremilast [Otezla] 60 mg PO DAILY 11/26/18 01/14/19 History Biotin 5 mg PO DAILY 11/26/18 01/14/19 History Calcium Carbonate [Calcium] 600 mg PO DAILY 11/26/18 01/14/19 History Cyanocobalamin (Vitamin B-12) 1,000 mcg PO DAILY 11/26/18 01/14/19 History [Vitamin B-12] Gabapentin [Neurontin] 500 mg PO HS 11/26/18 01/14/19 History Levothyroxine Sodium [Synthroid] 50 mcg PO DAILY 11/26/18 01/14/19 History Lysine [l-Lysine] 500 mg PO DAILY 11/26/18 01/14/19 History Colesevelam [Welchol] 625 mg PO 01/14/19 History Naltrexone HCl/Bupropion HCl 1 each PO 01/14/19 History [Contrave ER 8-90 mg Tablet] Allergies Allergy/AdvReac Type Severity Reaction Status Date / Time aspirin Allergy Rash/Hives Verified 12/03/18 14:02 Penicillins Allergy Rash/Hives Verified 04/12/19 14:02 Sulfa (Sulfonamide Allergy Rash/Hives Verified 12/03/18 14:02 Antibiotics) lactose AdvReac Severe GI problems Verified 12/03/18 14:02 Surgical - Exam Vital Signs Temp Pulse Resp BP Pulse Ox 98.1 F 82 18 137/88 100 01/14/19 15:24 01/14/19 15:24 01/14/19 15:24 01/14/19 15:24 01/14/19 15:24 - General well developed, well nourished, no distress - Eyes normal ocular movement - ENT normal pinna, no hearing loss - Neck no masses, trachea midline - Respiratory normal respiratory effort, clear to auscultation - Cardiovascular Rhythm: regular Heart Sounds: normal: S1, S2 - Abdomen Abdomen: soft, non tender, no guarding, no rigid, no rebound - Neurologic no disoriented, no combative - Musculoskeletal normal gait, normal posture - Psychiatric oriented to time, oriented to person, oriented to place, speech is normal, memory intact Breast exam: Right breast: Multiple positional exam increased nodularity at the 12:00 area no erythema and the nodularity has decreased to palpation Results Ultrasound results reviewed Assessment and Plan Assessment: Impression: Decreased swelling right breast decreased erythema ultrasound recommends attempted aspiration/biopsy 2. Fibrocystic breast changes 3. Breast pain 4. Psoriatic arthritis 5. Fibromyalgia 6. Ankylosing spondylitis 7. Back pain 8. Red blood per rectum Plan: 1. Ultrasound guided aspiration/biopsy of right breast lesion 2. Patient of bleeding tissue from neurosurgery regarding recent diagnosis cervical syrnix 3. Red blood per rectum would recommend GI consult 4. Medical management of medical conditions 5. Follow-up after aspiration/biopsy of right breast lesion CC: Dr. Estrella
== END | disposition home or self-care (01) ==
LOC: WWCWWP 15:19
PROVIDERS: ATTEND Surgery
DX: Z53.9 Procedure and treatment not carried out, unspecified reason (principal)

== ENCOUNTER → 2019-01-19 | Outpatient (CLI) | payer BC | LOC: LABWHC1 08:41 | PROVIDERS: ATTEND Internal Medicine Endocrinology, Diabetes & Metabolism | DX: E03.8 Other specified hypothyroidism (principal) | CPT/HCPCS: 36415; 84443 ==

== ENCOUNTER → 2019-02-01 | Day surgery (SDC) | payer BC ==
[2019-02-01 11:45] VITALS: TEMP 98.3; BMI 29.9
--- NOTE | 2019-02-01 13:18 | USB ---
EXAMINATION TYPE: US biopsy breast VAD RT, MG diagnostic mammo RT wo CAD, US breast aspiration ea add RT DATE OF EXAM: 02/01/2019 CLINICAL HISTORY: R92.8, ABNORMAL MAMMO. TECHNIQUE: Ultrasound guided core biopsy of right breast. COMPARISON: 01/11/2019 right breast ultrasound FINDINGS: The procedure of ultrasound guided core biopsy was explained to the patient. Benefits, alternatives, and risks were discussed. An informed consent was then obtained. Preprocedural timeout was performed. The patient was placed in supine positioning for imaging and for the procedure. The 2.5 x 1.4 x 1.1 cm hypoechoic retroareolar mass was localized sonographically. The overlying skin was prepped and draped in usual sterile fashion. 10 cc of 1% lidocaine was utilized as anesthetic into the skin and subcutaneous tissue and 7 cc of lidocaine with epinephrine was utilized to anesthetize the deeper subcutaneous soft tissues. Under ultrasound guidance, an 18-gauge spinal needle was utilized to aspirate a scant amount of fluid from the mass. This was serosanguineous. 12-gauge vacuum assisted biopsy gun device was used to obtain 5 core samples. Following this, a ribbon-shaped biopsy marker in the mass. The patient tolerated the procedure well without any immediate complication. The patient was kept in the radiology department for short stay after the procedure and then discharged home in stable condition. Postprocedure mammogram demonstrates appropriate biopsy marker placement. IMPRESSION: Successful, uncomplicated ultrasound guided aspiration and core biopsy of a 2.5 cm retroareolar breast abscess refractory to therapy with biopsy performed to exclude underlying neoplasm, full pathology results to follow. Pathology Results: Benign RIGHT BREAST, CORE BIOPSY: Fibrocystic changes including inflamed cyst wall with cyst contents, apocrine metaplasia and fibrosis. RIGHT BREAST, ASPIRATE: Foamy histiocytes and degenerated cellular material consistent with cyst contents. Recommendation Follow up ultrasound of the right breast in 6 months. Surgical consult of the right breast. (continued abscess/inflammatory process management) CANDY
[2019-02-01 13:44] VITALS: BP 118/79; PULSE 65
== END ==
LOC: RADUSWWP 11:14
PROVIDERS: ATTEND Surgery
DX: N60.01 Solitary cyst of right breast (principal); N60.11 Diffuse cystic mastopathy of right breast; N60.81 Other benign mammary dysplasias of right breast
CPT/HCPCS: 19000; 19083; 88305; 88173; 77065; A4648; J2001; 76942

== ENCOUNTER → 2019-02-09 | Outpatient (CLI) | payer BC ==
[2019-02-09 15:13] LABS: Basophils # (A) 0.1 k/uL (0-0.2); Basophils % (A) 1 %; Eosinophils # (A) 0.1 k/uL (0-0.7); Eosinophils % (A) 2 %; HCT 38.1 % (34.0-46.0); HGB 12.6 gm/dL (11.4-16.0); Lymphocytes % (A) 29 %; MCH 31.1 pg (25.0-35.0); MCHC 33.2 g/dL (31.0-37.0); MCV 93.8 fL (80.0-100.0); Mean Platelet Volume 7.6; Monocytes # (A) 0.3 k/uL (0-1.0); Monocytes % (A) 4 %; Neutrophils # (A) 4.3 k/uL (1.3-7.7); Neutrophils % (A) 62 %; Platelet Count 340 k/uL (150-450); RBC 4.06 m/uL (3.80-5.40); RDW 13.1 % (11.5-15.5); WBC 6.9 k/uL (3.8-10.6)
[2019-02-09 19:57] LABS: ALT 15 U/L (8-44); AST 21 U/L (13-35); Albumin/Globulin Ratio 1.77 (1.60-3.17); Alkaline Phosphatase 85 U/L (41-126); BUN/Creat Ratio 13.33 Ratio (12.00-20.00); C Reactive Protein <0.4 mg/dL (0.0-0.8); Calcium 9.8 mg/dL (8.7-10.3); Carbon Dioxide 27.6 mmol/L (21.6-31.8); Chloride 100 mmol/L (96-109); Globulin 2.6 g/dL (1.6-3.3); Glucose 100 mg/dL (70-110); Potassium 4.2 mmol/L (3.5-5.5); Sodium 140 mmol/L (135-145); Total Bilirubin 0.7 mg/dL (0.3-1.2); Total Protein 7.2 g/dL (6.2-8.2)
[2019-02-09 20:49] LABS: Gliadin AB IgA, Unit 4.3 U/mL
== END | disposition home or self-care (01) ==
LOC: LABWHC1 14:17
PROVIDERS: ATTEND Internal Medicine Gastroenterology
DX: K52.9 Noninfective gastroenteritis and colitis, unspecified (principal)
CPT/HCPCS: 36415; 80053; 83516; 85025; 86140

== ENCOUNTER → 2019-02-11 | Outpatient (CLI) | payer BC ==
[2019-02-11 15:02] VITALS: BP 133/84; PULSE 68; RESP 16; TEMP 98.5; BMI 29.8
--- NOTE | 2019-02-11 16:27 | P.PN ---
Subjective Progress Note Date: 02/11/19 Principal diagnosis: Asiya is a 53-year-old white female initially seen and 4519 with a complaint of pain in her right breast. The patient had been seen in the emergency room and was noted to have a lump in her breast which on ultrasound it was uncertain whether this was a phlegmon or an abscess. She was treated with clindamycin and pain decreased she didn't have complete resolution of the area of fullness. Repeat ultrasound and 52 119 was performed and this revealed that the area of concern was persistent and there was consideration for aspiration/biopsy. Aspiration was done and 21982. This revealed foamy histiocytes and degenerating cellular material consistent with cyst contents. The core revealed fibrocystic changes including inflamed cyst wall with cyst contents, metaplasia, and fibrosis. The patient states that she has a persistent nodule in this area and it remains sore. The patient has had no new fevers or chills since the inception of this lesion. The patient was initially treated with clindamycin but is since off antibiotics. Of concern is the fact that the patient has cervical disc disease and is recommended to undergo cervical disc surgery by neurosurgeon Dr. Robertson. Prior to any intervention of this nature unless patient that there is no residual infection in the breast. Additionally the patient is recently diagnosed presumptively with celiac disease. Family History: 1. paternal 7 siblings at 53 with stomach cancer 2. father: ulcer disease, dementia, Parkinson's disease 3. sister: multiple sclerosis Hormoanl HIstory: menarche: 15 , 1 [place] menopause: 44 BCP: 9 years hormones: none, sister had a stroke Past surgical history: 1. Tonsillectomy 2. Manipulation right shoulder 2. Cholecystectomy 4. Eli which reversed on its own 5. Bilateral knee surgery with no 6. Reconstruction of left ankle Past medical history: 1. Ankylosing spondylitis 2. Polyarticular arthritis 3. Fibromyalgia 4. 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 Recently diagnosed celiac disease 6. Cervical disc disease for which she is recommended to have cervical surgery Social History: smoke: none alcohol: wine every night drugs: has a marijuana card ROS: HEENT: Cervical syrnix, related to disc disease lungs: none heart: none GI: possible celiac disease : postmenopausal psych: negative Musculoskeletal: Ankylosing spondylitis, psoriatic arthritis, syrnix Endocrine: on synthroid, hypothyroid Objective - Vital Signs Vital signs: Vital Signs Temp 98.5 F 02/11/19 14:53 Pulse 68 02/11/19 14:53 Resp 16 02/11/19 14:53 BP 133/84 02/11/19 14:53 Pulse Ox 98 02/11/19 14:53 Intake & Output 02/10/19 02/11/19 02/11/19 18:59 06:59 18:59 Weight 73.936 kg - Exam BMI 29.8 - Constitutional General appearance: Present: average body habitus - EENT Eyes: Present: EOMI ENT: Present: hearing grossly normal - Respiratory Respiratory: bilateral: CTA - Cardiovascular Heart sounds: normal: S1, S2 - Gastrointestinal General gastrointestinal: Present: soft - Musculoskeletal Musculoskeletal: Present: generalized weakness - Psychiatric Psychiatric: Present: A&O x's 3, appropriate affect, intact judgment & insight - Additional findings Additional findings: breast exam: right breast: Multi-positional exam, patient is noted to have some periareolar ecchymosis, possible small hematoma at the base where the prior abscess was as pirated, fibrocystic breast changes, otherwise no lesions of concern identified Right axilla: No adenopathy of concern Left breast: Multi-positional exam without masses or nodules of concern Left axilla: No adenopathy of concern Assessment and Plan Assessment: Impression: 1. Ankylosing spondylitis 2. Polyarticular arthritis 3. Fibromyalgia 4. 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 Recently diagnosed celiac disease 6. Cervical disc disease for which she is recommended to have cervical surgery 7. resolving/resolved periaerolar hematoma, abscess Plan: 1. Repeat ultrasound right periareolar area 2. infectious disease/Dr. Filipe Caro 3. Possible I&D in the operating room 4. Surgical clearance from the Dr. Robertson prior to any anesthesia ( ) CC: Dr. Doyle
--- NOTE | 2019-02-15 08:35 | USB ---
Reason for exam: clinical finding. History: Patient is postmenopausal. Benign US breast aspiration ea add RT of the right breast, February 01, 2019. Benign US biopsy breast VAD RT of the right breast, February 01, 2019. Took hormonal contraceptives for 9 months. US Breast RT Right complete breast ultrasound includes all four quadrants, the retroareolar region and axilla. Finding demonstrates a 6 x 4mm oval lymph node at 9 o'clock at patients site of pain, possibly reactive lymph nodes, a 6 x 5mm oval lymph node at 10 o'clock at patients site of pain, possibly reactive lymph nodes, a 24 x 11 x 28mm irregular lesion at the posterior nipple including 12 o'clock previous biopsy site, surgical management biopsy proven benign, likely inflammatory process and a 6mm, 4mm, 8mm and 5mm lymph node at the axilla tail. ASSESSMENT: Probably benign, BI-RAD 3 RECOMMENDATION: Follow-up diagnostic mammogram and ultrasound of the right breast in 6 months. Manage on a clinical basis with regard to retroareolar inflammatory process.
== END | disposition home or self-care (01) ==
LOC: WWCWWP 14:12
PROVIDERS: ATTEND Surgery
DX: N63.10 Unspecified lump in the right breast, unspecified quadrant (principal)

== ENCOUNTER → 2019-02-17 | Outpatient (CLI) | payer BC ==
[2019-02-17 12:04] VITALS: BP 135/95; PULSE 70; RESP 16; TEMP 98.4; BMI 29.6
--- NOTE | 2019-02-17 12:17 | P.PN ---
Progress Note - Text Progress Note Date: 02/17/19 Tatum was seen yesterday by Dr. Filipe Caro from infectious disease. He has some concern that she may have lyme disease, and fungus and mold. He understands she is awaiting clearance for surgery. He also realizes that she has an abcess behind left nipple aerolar complex. The patient's most recent ultrasound in 620 119 revealed persistent 2.8 mm irregular lesion behind the nipple. Additionally several small lymph nodes were identified which looked that they were within the breast. We are awaiting the results of Dr. Caro is recommendation. The patient at this time is not having any fever or chills. She has no new changes in her breast. We will await preoperative clearance and tell Dr. Caro's recommendation.
== END | disposition home or self-care (01) ==
LOC: WWCWWP 11:36
PROVIDERS: ATTEND Surgery
DX: Z53.9 Procedure and treatment not carried out, unspecified reason (principal)

== ENCOUNTER 2019-02-18 12:25 | Day surgery (SDC) | payer BC ==
[2019-02-16 11:51] VITALS: BMI 29.8
[~2019-02-18 12:25] MED LIST changes: -LIDOCAINE 1% 20 ML VIAL (10MG/ML) FOR IV START INTRADERMA PRN
[2019-02-18 13:00] VITALS: RESP 16; TEMP 98.2
[2019-02-18] MEDS ORDERED: ONDANSETRON 4 MG/2 ML VIAL IVP ONE (13:02)
[2019-02-18] MEDS ORDERED: LIDOCAINE 1% INJ 10MG/ML (20 ML MDV) ONE (13:04)
[2019-02-18] MEDS ORDERED: PROPOFOL 10 MG/ML 20 ML VIAL IV ONE (13:04)
--- NOTE | 2019-02-18 13:15 | P.PCN ---
Date of Procedure: 02/18/19 Procedure(s) Performed: BRIEF HISTORY: Patient is a 53-year-old, pleasant, white female scheduled for an upper endoscopy as a part of evaluation of intermittent dysphagia to solids and liquids for the last 5 years duration. She underwent Eli fundoplication about 5 years ago and since then has been having intermittent dysphagia to solids. However for the last 2 months she has dysphagia to solids and liquids and happens 3-4 times a week. She is hence scheduled for an upper endoscopy with possible dilation today. PROCEDURE PERFORMED: Esophagogastroduodenoscopy with balloon dilation. PREOPERATIVE DIAGNOSIS: Progressive dysphagia to liquids and solids of several months duration. IV sedation per anesthesia. PROCEDURE: After informed consent was obtained, the patient was brought into the endoscopy unit. IV sedation was administered by Anesthesia under continuous monitoring. Initially the Olympus GIF-140 video endoscope was inserted into the mouth. Esophagus intubated without any difficulty. It was gradually advanced into the stomach and duodenum and carefully examined. The bulb and the second part of the duodenum appeared normal. The scope at this time was withdrawn to the stomach, adequately insufflated with air, and upon careful examination, mucosa of the antrum, body, cardia and the fundus appeared normal. Evidence of Eli fundoplication noted. The scope was then withdrawn into the esophagus. The GE junction was located at 39 cm from the incisors. The lower esophagus i nto was very tight and the scope could be advanced into the stomach with a Sensation but no obvious stricture in height. Because of the same patient symptoms I proceeded with a break balloon dilation using 18-20 mm TTS balloon in a sequential fashion for total of 90 seconds. The rest of the esophagus appeared normal. There were no erosions or ulcerations seen and the patient tolerated the procedure well. IMPRESSION: 1. Tight lower esophageal sphincter at the site of Eli fundoplication no obvious stricture status post balloon dilation using 18-20 mm TTS balloon as described above. 2. No evidence of esophagitis or Richard's esophagus. RECOMMENDATIONS: The findings of this examination were discussed with the patient as well as her family. She was advised to remain on clear liquid diet today. She'll follow up in office in 6 weeks.. 20 mg daily and follow antireflux measures.
[2019-02-18 13:35] VITALS: BP 128/82; PULSE 79
== END 2019-02-18 13:59 | disposition home or self-care (01) ==
LOC: ORWHC2ENDO 12:25
PROVIDERS: ATTEND Internal Medicine Gastroenterology
DX: R13.10 Dysphagia, unspecified (principal); E78.5 Hyperlipidemia, unspecified; E07.9 Disorder of thyroid, unspecified; K21.9 Gastro-esophageal reflux disease without esophagitis; Z79.890 Hormone replacement therapy; Z79.899 Other long term (current) drug therapy; Z88.0 Allergy status to penicillin; Z88.2 Allergy status to sulfonamides; Z88.6 Allergy status to analgesic agent; Z91.011 Allergy to milk products
CPT/HCPCS: 43249; J2405; J2001; J2704; C1726

== ENCOUNTER → 2019-03-03 | Outpatient (CLI) | payer BC ==
[2019-03-03 10:45] VITALS: BP 131/84; PULSE 67; RESP 20; TEMP 97.9; BMI 29.6
--- NOTE | 2019-03-03 11:13 | P.PN ---
Subjective Progress Note Date: 03/03/19 Tatum is a 53-year-old white female initially seen on 4518 with a complaint of pain in her right breast. The patient was seen in the emergency room was noted to have a lump in her breast which on ultrasound was uncertain as to whether this was a phlegmon or an abscess. She was treated with clindamycin and the patient decreased although she did not have complete resolution of the area of fullness. Repeat ultrasound and 52 119 was performed and this revealed that the area of concern was persistent and consideration was for biopsy. Aspiration was done and this revealed foamy histiocytes and degenerating cellular material consistent with cyst contents. The patient is scheduled to undergo a cervical discectomy next week. We are concerned to be sure that there is no active abscess present. The patient has been seen by infectious disease who has cleared her for surgical intervention. We have no cultures from this area. The patient has not had any fever or chills. The area of fullness has markedly resolved. There still remains some mild fullness behind the right nipple areolar area. The patient is told she has a cervical spinal syrnix and is recommended to have surgery secondary to this. Family history: Paternal 7 siblings at 53 with stomach cancer Father: Ulcer disease Sister: Multiple sclerosis Father: Dementia, Parkinson's disease Past surgical history: 1. Tonsils 2. Manipulation right shoulder 3. Gallbladder 4. Eli which reversed on its own 5. Bilateral knee surgery 6. Reconstruction of the left ankle Past medical history: 1. Ankylosing spondylitis 2. Polyarticular arthritis 3. Fibromyalgia 4. Psoriatic arthritis Objective - Vital Signs Vital signs: Vital Signs Temp 97.9 F 03/03/19 10:41 Pulse 67 03/03/19 10:41 Resp 20 03/03/19 10:41 BP 131/84 03/03/19 10:41 Pulse Ox 98 03/03/19 10:41 Intake & Output 03/02/19 03/03/19 03/03/19 18:59 06:59 18:59 Weight 73.482 kg - Constitutional General appearance: Present: average body habitus - EENT Eyes: Present: EOMI ENT: Present: hearing grossly normal - Respiratory Respiratory: bilateral: CTA - Cardiovascular Rhythm: regular Heart sounds: normal: S1, S2 - Integumentary Integumentary Comment(s): Right breast exam: Periareolar area increased from last but no discrete dominant mass Right axilla no adenopathy of concern Right breast multiple positional exam fibrocystic changes - Musculoskeletal Musculoskeletal: Present: gait normal - Psychiatric Psychiatric: Present: A&O x's 3, appropriate affect, intact judgment & insight Assessment and Plan Assessment: Impression: 1. Decreased swelling right breast, no erythema, no definite abscess at this time nothing obvious to drain 2. Fibrocystic breast changes 3. Breast pain improved 4. Psoriatic arthritis 5. Fibromyalgia 6. Ankylosing spondylitis 7. Back pain 8. Patient cleared for surgery by Dr. Caro infectious disease Plan: 1. Patient cleared for surgery by Dr. Caro for cervical discectomy 2. Follow up here in 6 months regarding right breast 3. Medical management of medical conditions I discussed with the patient that I cannot guarantee that there is not some infectious agent residing in the dense tissue behind the nipple areola complex, however there is nothing apparent there to drain at this time. She has no evidence of infection with no erythema, and no fever. She has been cleared from infectious disease standpoint. We will continue to follow her closely. I do have some concerns that she could be at increased risk for infectious process related to what was occurring in her breast but again at this time there does not appear to be any surgical treatment warranted. CC: Dr. Estrella
== END | disposition home or self-care (01) ==
LOC: WWCWWP 10:19
PROVIDERS: ATTEND Surgery
DX: Z53.9 Procedure and treatment not carried out, unspecified reason (principal)

== ENCOUNTER → 2019-03-03 | Day surgery (SDC) | payer BC ==
--- NOTE | 2019-03-04 08:07 | USB ---
Reason for exam: clinical finding. History: Patient is postmenopausal. Benign US breast aspiration ea add RT of the right breast, February 01, 2019. Benign US biopsy breast VAD RT of the right breast, February 01, 2019. Took hormonal contraceptives for 9 months. US Breast Limited RT Right limited breast ultrasound including focal area of concern, retroareolar and axilla demonstrates area reassessed as seen on 02/11/19 at posterior nipple. Resolution of the previously seen phlegmon and abscess. No focal fluid collection now seen. These results were verbally communicated with the patient and result sheet given to the patient on 03/03/19. ASSESSMENT: Benign, BI-RAD 2 RECOMMENDATION: Return to routine screening mammogram schedule for both breasts. Manage patient on a clinical basis.
== END ==
LOC: RADUSWWP 12:26
PROVIDERS: ATTEND Surgery
DX: R92.8 Other abnormal and inconclusive findings on diagnostic imaging of breast (principal)

== ENCOUNTER → 2019-04-20 | Outpatient (CLI) | payer BC | END | disposition home or self-care (01) | LOC: LAB 12:49 | PROVIDERS: ATTEND Internal Medicine Endocrinology, Diabetes & Metabolism | DX: E03.8 Other specified hypothyroidism (principal) | CPT/HCPCS: 84443 ==

== ENCOUNTER → 2019-05-19 | Outpatient (CLI) | payer BC ==
--- NOTE | 2019-05-19 14:51 | BD ---
EXAMINATION TYPE: Axial Bone Density DATE OF EXAM: 05/19/2019 COMPARISON: 2017 CLINICAL HISTORY: M 89.9 Height: 62.25 Weight: 156 FRAX RISK QUESTIONS: Alcohol (3 or more units per day): no Family History (Parent hip fracture): no Glucocorticoids (More than 3mos): no (Ex: prednisone, prednisolone, methylprednisolone, dexamethasone, and hydrocortisone). History of Fracture in Adulthood: toes Secondary Osteoporosis: 1. Type 1 Diabetes: no 2. Hyperthyroidism: no 3. Menopause before 45: no, age 48 4. Malnutrition: no 5. Chronic liver disease: no Rheumatoid Arthritis: no Current Tobacco Use: no RISK FACTORS HISTORY OF: Surgery to Spine: cervical spine When: about 8 weeks ago Family History of Osteoporosis: yes, mother Active: yes Diet low in dairy products/other sources of calcium: no Postmenopausal woman: yes Take estrogen and/or progesterone medications: not now How long: hormonal contraceptives less than one year Lost more than 2 inches in height since high school: no Frequent falls: no Poor Health: no, fair Hyperparathyroidism: no Adrenal Insufficiency: no MEDICATIONS: Prednisone or other steroids: no Thyroid Medications: yes Which medication: Synthroid (originally used Levothyroxine) How Long: under 2 years Osteoporosis Medications:no Additional Medications: cholesterol med, calcium & Vitamin D & multivitamin Additional History: recent cervical spine surgery EXAM MEASUREMENTS: Bone mineral densitometry was performed using the [employer] Camera & Image System. Bone mineral density as measured about the Lumbar spine is: ----- L1-L4(G/cm2): 0.818 T Score Values are as follows: ----- L2: -3.1 ----- L3: -3.1 ----- L4: -2.6 ----- L1-L4: -3.0 Bone mineral density has: Decreased -14.5% since study of: 05/18/2017 Bone mineral density about the R hip (g/cm2): 0.885 Bone mineral density about the L hip (g/cm2): 0.851 T Score values are as follows: -----R Neck: -1.1 -----L Neck: -1.3 -----R Total: -1.2 -----L Total: -1.3 Bone mineral density has: Decreased -6.1% since study of: 05/18/2017 IMPRESSION: Osteopenia (T Score between -2.5 and -1). There is slightly increased risk of fracture and the patient may be considered for treatment. Re-Screen 2-5 years. NOTE: T-SCORE=SD OF THE YOUNG ADULT MEAN.
== END | disposition home or self-care (01) ==
LOC: RADBDWWP 12:39
PROVIDERS: ATTEND Obstetrics & Gynecology
DX: M85.88 Other specified disorders of bone density and structure, other site (principal)
CPT/HCPCS: 77080

== ENCOUNTER → 2019-07-19 | Outpatient (CLI) | payer BC ==
--- NOTE | 2019-07-19 11:54 | XR ---
Cervical spine Limited HISTORY: Follow-up cervical spine surgery Four views of the cervical spine Patient is status post anterior cervical fusion and discectomy at C4-C7, there are intervertebral spa cing blocks present. There is anatomic alignment. Cervical vertebral bodies show preserved height and bone mineralization. Odontoid view is limited. Spinal curvature noted in the thoracic spine. IMPRESSION: Neurosurgical follow-up.
== END | disposition home or self-care (01) ==
LOC: RADXRMAIN 09:20
DX: M47.12 Other spondylosis with myelopathy, cervical region (principal)
CPT/HCPCS: 72040

== ENCOUNTER → 2019-09-05 | Outpatient (CLI) | payer BC ==
--- NOTE | 2019-09-05 09:24 | MM ---
Reason for exam: follow-up at short interval from prior study. Last mammogram was performed 7 months ago. History: Patient is postmenopausal. Benign US breast aspiration ea add RT of the right breast, February 01, 2019. Benign US biopsy breast VAD RT of the right breast, February 01, 2019. Took hormonal contraceptives for 9 months. Physical Findings: Nurse did not find any significant physical abnormalities on exam. MG Diagnostic Mammo RT w CAD CC and MLO view(s) were taken of the right breast. Prior study comparison: February 01, 2019, right breast MG diagnostic mammo RT wo CAD. November 29, 2018, bilateral MG 3d diag mammo w/cad TODD. The breast tissue is heterogeneously dense. This may lower the sensitivity of mammography. Right biopsy marker noted. These results were verbally communicated with the patient and result sheet given to the patient on 09/05/19. ASSESSMENT: Benign, BI-RAD 2 RECOMMENDATION: Routine screening mammogram of both breasts in 4 months. Back on schedule for November 2019.
== END | disposition home or self-care (01) ==
LOC: RADMAMWWP 08:05
PROVIDERS: ATTEND Surgery
DX: R92.8 Other abnormal and inconclusive findings on diagnostic imaging of breast (principal)
CPT/HCPCS: 77065

== ENCOUNTER → 2019-09-08 | Outpatient (CLI) | payer BC ==
[2019-09-08 12:40] VITALS: BP 135/90; PULSE 62; RESP 18; TEMP 97.7
--- NOTE | 2019-09-08 13:17 | P.PN ---
Subjective Progress Note Date: 09/08/19 Principal diagnosis: surveillance breast abscess/fibrocystic disease Principal diagnosis: Asiya is a 53-year-old white female initially seen and 4519 with a complaint of pain in her right breast. The patient had been seen in the emergency room and was noted to have a lump in her breast which on ultrasound it was uncertain whether this was a phlegmon or an abscess. She was treated with clindamycin and pain decreased she didn't have complete resolution of the area of fullness. Repeat ultrasound and 52 119 was performed and this revealed that the area of concern was persistent and there was consideration for aspiration/biopsy. Aspiration was done and [address]84. This revealed foamy histiocytes and degenerating cellular material consistent with cyst contents. The core revealed fibrocystic changes including inflamed cyst wall with cyst contents, metaplasia, and fibrosis. Of concern is the fact that the patient had cervical disc disease and was recommended to undergo cervical disc surgery by neurosurgeon Dr. Robertson. The menon rgery was done in February of 2019. She did not have any complications of infection . This healed well. The patient is complaining of headaches and difficulty with balance. Additionally the patient is recently diagnosed with diverticulosis. Patient was also seen a educational interpreter who is recommended patient have cosentx. The concern is that if she has any active infection that this would not be a good choice. The patient had an MRI performed which revealed sinus fullness on the left side. She will follow with Dr. Kimbrough for this. She is also complaining of headaches. She is following for this with Dr. Mchugh from neurology. The patient states she has bilateral breast tenderness. No lumps or nodules in her breast of concern, she has had right lateral nodularity for approximately 20 years with no change. She had a right breast mammogram and 53388. This was benign BIRADS 2. She is due for left breast mammogram in November 2019. The patient recently stopped a course of antibiotics patient was on for 30 days for an infected wisdom tooth. She is not taking any hormones, but getting some estrogen plant based substances. This is weekly in "[employer]". caffeine: coffee daily and pop through out the week nicotine: none chocolate: none Family History: 1. paternal 7 siblings at 53 with stomach cancer 2. father: ulcer disease, dementia, Parkinson's disease 3. sister: multiple sclerosis Hormoanl HIstory: menarche: 15 , 1 miscarrage menopause: 44 BCP: 9 years hormones: none, sister had a stroke Past surgical history: 1. Tonsillectomy 2. Manipulation right shoulder 2. Cholecystectomy 4. Eli which reversed on its own 5. Bilateral knee surgery with no 6. Reconstruction of left ankle Past medical history: 1. Ankylosing spondylitis 2. Polyarticular arthritis 3. Fibromyalgia 4. Psoriatic arthritis she follows with educational interpreter 5. Recently diagnosed celiac disease 6. Cervical disc disease for which she is recommended to have cervical surgery Social History: smoke: none alcohol: wine every night drugs: has a marijuana card ROS: HEENT: Cervical syrnix, related to disc disease lungs: none heart: none GI: possible celiac disease : postmenopausal psych: negative Musculoskeletal: Ankylosing spondylitis, psoriatic arthritis, syrnix Endocrine: on synthroid, hypothyroid Objective - Vital Signs Vital signs: Vital Signs Temp 97.7 F 09/08/19 12:33 Pulse 62 09/08/19 12:33 Resp 18 09/08/19 12:33 BP 135/90 09/08/19 12:33 Pulse Ox 100 09/08/19 12:33 Intake & Output 09/07/19 09/08/19 09/08/19 18:59 06:59 18:59 Weight 73.936 kg - Exam BMI 29.8 - Constitutional General appearance: Present: average body habitus - EENT EENT Comment(s): scar well healed right side of neck Eyes: Present: EOMI ENT: Present: hearing grossly normal - Neck Details: no adenopathy Neck: Present: normal ROM - Respiratory Respiratory: bilateral: CTA - Cardiovascular Rhythm: regular Heart sounds: normal: S1, S2 - Gastrointestinal General gastrointestinal: Present: normal bowel sounds, soft - Integumentary Integumentary Comment(s): tattoo Integumentary: Present: normal turgor - Musculoskeletal Musculoskeletal: Present: gait normal - Psychiatric Psychiatric: Present: A&O x's 3, appropriate affect, intact judgment & insight - Additional findings Additional findings: breast exam: BRA 36B ptosis: grade 2 inspection: no skin changes of concern, no nipple inversion Palpation: right breasts: Multi-positional exam fibrocystic changes, the area of nodularity in the lateral aspect which has been stable for approximately 20 years appears to be fibrocystic in nature Right axilla: No adenopathy of concern Left breast: Multi-positional exam fibrocystic changes, no dominant masses or nodules of concern no nipple inversion Left axilla: No adenopathy of concern Assessment and Plan Assessment: Impression: 1. Prior right breast abscess appears to be resolved 2. Fibrocystic breast changes 3. Nodularity lateral aspect of right breast stable most likely fibrocystic in nature 4. Recent right breast mammogram BIRADS 2 5. Patient underwent C-spine surgery and has done well with this 6. Headaches following with neurology 7. Sinus fullness following with ENT 8. Poor balance also following with neurology Discussed the fact that fibrocystic changes can be exacerbated by caffeine as well as natural plan hormones. The patient has been exposed to natural plan hormones and is going to stop this. Additionally she is going to cut down on her caffeine. We have also discussed the fact that the patient is interested possibly starting consentx and an ultrasound has been recommended of the right breast to assure that there is no residual abscess in the posterior molar area. If there is no evidence of any infection in the breast and there is no reason from our standpoint that she could not start in this. Plan: 1. Right breast ultrasound 2. Bilateral mammogram in 4 months 3. Decrease/stop caffeine 4. Stop plant based hormones CC: Sameer encounter 30 minutes > 50% in planning and counselling
== END ==
LOC: WWCWWP 12:27
PROVIDERS: ATTEND Surgery
DX: Z53.9 Procedure and treatment not carried out, unspecified reason (principal)

== ENCOUNTER → 2019-09-20 | Outpatient (CLI) | payer BC ==
--- NOTE | 2019-09-20 11:32 | USB ---
Reason for exam: clinical finding. History: Patient is postmenopausal. Benign US breast aspiration ea add RT of the right breast, February 01, 2019. Benign US biopsy breast VAD RT of the right breast, February 01, 2019. Took hormonal contraceptives for 9 months. Indicated problem(s): other indicated problem in both breasts. Physical Findings: Nurse Summary: BB's nodular, moves (nurse kp). US Breast Limited BILAT Right limited breast ultrasound including focal area of concern, retroareolar and axilla demonstrates a 5 x 3 x 4mm oval, cystic lesion at 12 o'clock, this measured 4 x 3 x 4mm in 2015, a 8mm oval lymph node at the axilla, a 8mm oval lymph node at the axilla and a 5mm oval lymph node at the axilla. Left limited breast ultrasound including focal area of concern, retroareolar and axilla demonstrates a 5 x 4mm oval lymph node at 3 o'clock, a 5 x 5mm oval lymph node at 3 o'clock, a 2mm node at the axilla, a 8mm node at the axilla and a dilated mobile debris filled duct at the posterior nipple for which a 6 month follow up is recommended. These results were verbally communicated with the patient and result sheet given to the patient on 09/20/19. ASSESSMENT: Probably benign, BI-RAD 3 RECOMMENDATION: Surgical consultation of the left breast. (ductal ectasia with mobile debris) Called office with mammographic findings and has scheduled an appointment for the patient for 09/23/19 at 2:[address] Claudio. PRELIMINARY REPORT CALLED AND FAXED TO DR. CLAUDIO ON 09/20/19. Ultrasound of the left breast in 6 months.
== END | disposition home or self-care (01) ==
LOC: RADUSWWP 10:19
PROVIDERS: ATTEND Surgery
DX: R92.8 Other abnormal and inconclusive findings on diagnostic imaging of breast (principal)

== ENCOUNTER → 2019-09-23 | Outpatient (CLI) | payer BC ==
[2019-09-23 15:22] VITALS: BP 117/82; PULSE 60; RESP 18; TEMP 98
--- NOTE | 2019-09-23 15:44 | P.PN ---
Subjective Progress Note Date: 09/23/19 Principal diagnosis: abnormal breast ultrasound left breast Asiya is a 53-year-old white female initially seen and 4519 with a complaint of pain in her right breast. The patient had been seen in the emergency room and was noted to have a lump in her breast which on ultrasound it was uncertain whether this was a phlegmon or an abscess. She was treated with clindamycin and pain decreased she didn't have complete resolution of the area of fullness. Repeat ultrasound and 52 119 was performed and this revealed that the area of concern was persistent and there was consideration for aspiration/biopsy. [place] [address]. This revealed foamy histiocytes and degenerating cellular material consistent with cyst contents. The core revealed fibrocystic changes including inflamed cyst wall with cyst contents, metaplasia, and fibrosis. Of concern is the fact that the patient had cervical disc disease and was recommended to undergo cervical disc surgery by neurosurgeon Dr. Robertson. The surgery was done in February of 2019. She did not have any complications of infection . This healed well. The patient is complaining of headaches and difficulty with balance. Additionally the patient is recently diagnosed with diverticulosis. Patient was also seen a tread tuber machine operator who is recommended patient have cosentx. The concern is that if she has any active infection that this would not be a good choice. The patient had an MRI performed which revealed sinus fullness on the left side. She will follow with Dr. Kimbrough for this. She has been seen by Dr. Kimbrough and was told that she had a milk ALLERGY and that most likely her difficulty with sinuses are related to a milk ALLERGY. She is also complaining of headaches. She is following for this with Dr. Mchugh from neurology. She was told tight neck muscles were causing these. The patient states she has bilateral breast tenderness. No lumps or nodules in her breast of concern, she has had right lateral nodularity for approximately 20 years with no change. She had a right breast mammogram and . This was benign BIRADS 2. She is due for left breast mammogram in November 2019. The patient recently stopped a course of antibiotics patient was on for 30 days for an infected wisdom tooth. Patient's most recent mammogram of her right breast was on . This was benign BIRADS 2. [place] [address] which revealed in the right breast a 5 x 4 mm cystic lesion at 12:00 and in the left breast a 5 x 5 lymph node at 3:00 and a dilated multiple debris-filled duct and the posterior nipple for which a 6 month follow-up was recommended. She is not taking any hormones, but getting some estrogen plant based substances. This is weekly in "[employer]". caffeine: coffee daily and pop through out the week nicotine: none chocolate: none Family History: 1. paternal 7 siblings at 53 with stomach cancer 2. father: ulcer disease, dementia, Parkinson's disease 3. sister: multiple sclerosis Hormoanl HIstory: menarche: 15 , 1 miscarrage menopause: 44 BCP: 9 years hormones: none, sister had a stroke Past surgical history: 1. Tonsillectomy 2. Manipulation right shoulder 2. Cholecystectomy 4. Eli which reversed on its own 5. Bilateral knee surgery with no 6. Reconstruction of left ankle Past medical history: 1. Ankylosing spondylitis 2. Polyarticular arthritis 3. Fibromyalgia 4. Psoriatic arthritis she follows with tread tuber machine operator 5. Recently diagnosed celiac disease 6. Cervical disc disease for which she is recommended to have cervical surgery Social History: smoke: none alcohol: wine every night drugs: has a marijuana card ROS: HEENT: Cervical syrnix, related to disc disease lungs: none heart: none GI: possible celiac disease : postmenopausal psych: negative Musculoskeletal: Ankylosing spondylitis, psoriatic arthritis, syrnix Endocrine: on synthroid, hypothyroid Objective - Vital Signs Vital signs: Vital Signs Temp 98.0 F 09/23/19 15:16 Pulse 60 09/23/19 15:16 Resp 18 09/23/19 15:16 BP 117/82 09/23/19 15:16 Pulse Ox 99 09/23/19 15:16 Intake & Output 09/22/19 09/23/19 09/23/19 18:59 06:59 18:59 Weight 72.575 kg - Constitutional General appearance: Present: average body habitus - EENT Eyes: Present: EOMI ENT: Present: hearing grossly normal - Respiratory Respiratory: bilateral: CTA - Cardiovascular Rhythm: regular Heart sounds: normal: S1, S2 - Gastrointestinal General gastrointestinal: Present: normal bowel sounds, soft - Musculoskeletal Musculoskeletal: Present: gait normal - Psychiatric Psychiatric: Present: A&O x's 3, appropriate affect, intact judgment & insight - Additional findings Additional findings: Breast examination: BRA 38B Inspection: No skin changes of concern, no nipple inversion Palpation: Right breast: Multiple positional exam fibrocystic changes no dominant masses or nodules of concern Right axilla: No adenopathy of concern Left breast: Multi-positional exam fibrocystic changes no dominant masses or nodules of concern Left axilla: No adenopathy of concern Assessment and Plan Assessment: Impression: 1. Fibrocystic breast changes 2. Radiographic abnormality left breast ultrasound dilated mobile debris filled duct posterior nipple for which six-month follow-up is recommended 3. Patient due for left breast mammogram in November 2019 Plan: 1. left breast mammogram and ultrasound in November 2019 2. follow up in November for breast exam Cc: Dr. Cardenas encounter 15 minutes, > 50% 0f time in planning and counselling Time with Patient: Less than 30
== END | disposition home or self-care (01) ==
LOC: WWCWWP 15:07
PROVIDERS: ATTEND Surgery
DX: Z53.9 Procedure and treatment not carried out, unspecified reason (principal)

== ENCOUNTER → 2019-10-27 | Outpatient (CLI) | payer BC | END | disposition home or self-care (01) | LOC: LABWHC1 09:55 | PROVIDERS: ATTEND Internal Medicine Endocrinology, Diabetes & Metabolism | DX: E03.8 Other specified hypothyroidism (principal) | CPT/HCPCS: 36415; 84443 ==

== ENCOUNTER → 2020-05-15 | Outpatient (CLI) | payer BC | END | disposition home or self-care (01) | LOC: LABWHC1 11:05 | PROVIDERS: ATTEND Internal Medicine Endocrinology, Diabetes & Metabolism | DX: E03.8 Other specified hypothyroidism (principal) | CPT/HCPCS: 36415; 84443 ==

== ENCOUNTER → 2020-05-31 | Outpatient (CLI) | payer BC ==
[2020-05-31 10:51] VITALS: BP 116/83; PULSE 82; RESP 16; TEMP 98.2
--- NOTE | 2020-05-31 11:05 | P.PN ---
Subjective Progress Note Date: 05/31/20 Principal diagnosis: abnormal left breast mammogram Asiya is a 54-year-old white female initially seen on 4519 with a complaint of pain in her right breast. The patient had been seen in the emergency room and was noted to have a lump in her breast which on ultrasound it was uncertain whether this was a phlegmon or an abscess. She was treated with clindamycin and pain decreased she didn't have complete resolution of the area of fullness. Repeat ultrasound and 52 119 was performed and this revealed that the area of concern was persistent and there was consideration for aspiration/biopsy. Aspiration was done and 22548. This revealed foamy histiocytes and degenerating cellular material consistent with cyst contents. The core revealed fibrocystic changes including inflamed cyst wall with cyst contents, metaplasia, and fibrosis. Of concern is the fact that the patient had cervical disc disease and was recommended to undergo cervical disc surgery by neurosurgeon Dr. Robertson. The surgery was done in February of 2019. She did not have any complications of infection . This healed well. The patient is complaining of headaches and difficulty with balance. Additionally the patient is recently diagnosed with diverticulosis. Patient was also seen a fiscal officer who is recommended patient have cosentyx. The concern is that if she has any active infection that this would not be a good choice. The patient had an MRI performed which revealed sinus fullness on the left side. She will follow with Dr. Kimbrough for this. She has been seen by Dr. Kimbrough and was told that she had a milk ALLERGY and that most likely her difficulty with sinuses are related to a milk ALLERGY. She is also complaining of headaches. She is following for this with Dr. Mchugh from neurology. She was told tight neck muscles were causing these. The patient states she has bilateral breast tenderness. No lumps or nodules in her breast of concern, she has had right lateral nodularity for approximately 20 years with no change. She had a right breast mammogram and . This was benign BIRADS 2. She is due for left breast mammogram in November 2019. The patient was taking otezla for psoriatic arthritis this will be stopped and she is going to take a new medication in the near future. She did not ever take the cosentyx. Patient had a mammogram of her right breast on . This was benign BIRADS 2. A bilateral ultrasound was performed on which revealed in the right breast a 5 x 4 mm cystic lesion at 12:00 and in the left breast a 5 x 5 lymph node at 3:00 and a dilated multiple debris-filled duct and the posterior nipple for which a 6 month follow-up was recommended. She had a bilateral 3D mammogram on 03-20-20 after which a left breast ultrasound was preformed. This was felt to be BENIGN BIRAD 2, and bilateral mammogram in one year recommended. The patient is not having any complaints related to her breast. She is not complaining of any lumps masses or nodules in her breast. She is not complaining of any pain in her breast. She has no abnormal nipple discharge or skin changes. She has had no recent history of trauma or infection of the breast. She is not taking any hormones, was getting some estrogen in plant based substances. This was weekly in "impossible burgers" which she stopped caffeine: 2 cups coffee daily and pop through out the week nicotine: none chocolate: none Family History: 1. paternal 7 siblings at 53 with stomach cancer 2. father: ulcer disease, dementia, Parkinson's disease 3. sister: multiple sclerosis Hormoa HIstory: menarche: 15 , 1 misc[place]age menopause: 44 BCP: 9 years hormones: none, sister had a stroke Past surgical history: 1. Tonsillectomy 2. Manipulation right shoulder 2. Cholecystectomy 4. Eli which reversed on its own 5. Bilateral knee surgery with no 6. Reconstruction of left ankle Past medical history: 1. Ankylosing spondylitis 2. Polyarticular arthritis 3. Fibromyalgia 4. Psoriatic arthritis she follows with fiscal officer 5. Recently diagnosed celiac disease 6. Cervical disc disease for which she is recommended to have cervical surgery Social History: smoke: none alcohol: wine every night drugs: has a marijuana card ROS: HEENT: Cervical syrnix, related to disc disease lungs: none heart: none GI: possible celiac disease : postmenopausal psych: negative Musculoskeletal: Ankylosing spondylitis, psoriatic arthritis, syrnix Endocrine: on synthroid, hypothyroid Objective - Vital Signs Vital signs: Intake & Output 05/30/20 05/31/20 05/31/20 18:59 06:59 18:59 Weight 72.121 kg - Exam BMI 29.1 - Constitutional General appearance: Present: average body habitus - EENT Eyes: Present: EOMI ENT: Present: hearing grossly normal - Neck Neck: Present: normal ROM - Respiratory Respiratory: bilateral: CTA - Cardiovascular Rhythm: regular Heart sounds: normal: S1, S2 - Integumentary Integumentary: Present: normal turgor - Musculoskeletal Musculoskeletal Comment(s): uses a cane for walking - Psychiatric Psychiatric: Present: A&O x's 3, appropriate affect, intact judgment & insight - Additional findings Additional findings: Breast Exam: BRA: 38B inspection: well healed scar right breast palpation: right breasts: Multiple positional exam fibrocystic changes, no dominant masses or nodules of concern Right axilla: No adenopathy of concern Left breast: Multi-positional exam fibrocystic changes, no dominant masses or nodules of concern Left axilla: No adenopathy of concern Assessment and Plan Assessment: Impression: 1. Fibrocystic breast changes bilaterally 2. Bilateral mammogram and left breast ultrasound in February 2020 repeat bilateral mammogram in 1 year 3. No evidence of recurrent abscess in the breast 4. Ankylosing spondylitis 5. Psoriatic arthritis 6. Fibromyalgia 7. Patient on immunotherapy related to the above diagnoses 8. Patient is not taking any hormones or estrogen at this time The patient has had a breast abscess in the past. She is immune suppressed related to her above diagnoses and understands that anything that results in increased fibrocystic disease in the breast could result in breast pain, and breast cyst. She understands about the caffeine intake and is going to consider modification of lifestyle. Plan: 1. Bilateral mammogram in 1 year with physician exam at that time 2. Continued medical management of medical conditions Cc: Dr. Cardenas encounter 20 minutes, > 50% of time in planning and counselling
== END | disposition home or self-care (01) ==
LOC: WWCWWP 10:34
PROVIDERS: ATTEND Surgery
DX: Z53.9 Procedure and treatment not carried out, unspecified reason (principal)

== ENCOUNTER → 2020-11-14 | Outpatient (CLI) | payer BC ==
--- NOTE | 2020-11-14 17:57 | XR ---
EXAMINATION TYPE: XR cervical spine comp DATE OF EXAM: 11/14/2020 COMPARISON: 07/19/2019 HISTORY: Neck pain TECHNIQUE: Four views are submitted. FINDINGS: The odontoid is intact. There are no compression deformities. The prevertebral soft tissue structur es are within normal limits. Postsurgical change involving the cervical spine with anterior fixation plate. Alignment near-anatomic. There is mild foraminal encroachment C3-C4 and C4-C5 and C5-C6 on th e right. Calcifications in the soft tissues of the right neck likely vascular. Limited assessment of the left neural foramina. IMPRESSION: 1. Stable postsurgical changes.
== END | disposition home or self-care (01) ==
LOC: RADXRMAIN 14:37
PROVIDERS: ATTEND Family Medicine
DX: M54.2 Cervicalgia (principal); Z98.1 Arthrodesis status
CPT/HCPCS: 72050

== ENCOUNTER → 2021-01-31 | Outpatient (CLI) | payer BC | END | disposition home or self-care (01) | LOC: LABWHC1 09:50 | PROVIDERS: ATTEND Internal Medicine Endocrinology, Diabetes & Metabolism | DX: E03.8 Other specified hypothyroidism (principal) | CPT/HCPCS: 36415; 84443 ==

== ENCOUNTER → 2021-04-17 | Outpatient (CLI) | payer BC ==
--- NOTE | 2021-04-17 10:48 | MM ---
Reason for exam: additional evaluation requested from prior study. Last mammogram was performed 1 year and 1 month ago. History: Patient is postmenopausal. Benign US breast aspiration ea add RT of the right breast, February 01, 2019. Benign US biopsy breast VAD RT of the right breast, February 01, 2019. Took hormonal contraceptives for 9 months. Physical Findings: Nurse did not find any significant physical abnormalities on exam. MG 3D Diag Mammo W/Cad TODD Bilateral CC and MLO view(s) were taken. Prior study comparison: March 20, 2020, bilateral MG 3d diag mammo w/cad TODD. September 05, 2019, right breast MG diagnostic mammo RT w CAD. The breast tissue is heterogeneously dense. This may lower the sensitivity of mammography. There is no discrete abnormality. No significant new findings when compared with previous films. These results were verbally communicated with the patient and result sheet given to the patient on 04/17/21. ASSESSMENT: Negative, BI-RAD 1 RECOMMENDATION: Routine screening mammogram of both breasts in 1 year.
== END | disposition home or self-care (01) ==
LOC: RADMAMWWP 09:41
PROVIDERS: ATTEND Surgery
DX: R92.2 Inconclusive mammogram (principal); Z78.0 Asymptomatic menopausal state
CPT/HCPCS: 77062; 77066

== ENCOUNTER → 2021-05-02 | Outpatient (CLI) | payer BC ==
[2021-05-02 10:35] VITALS: BP 125/84; PULSE 74; RESP 18; TEMP 98.4
--- NOTE | 2021-05-02 10:47 | P.PN ---
Subjective Progress Note Date: 05/02/21 Principal diagnosis: fibrocystic breast changes Tatum is a 55 year old white female with a right breast abscess treated with clindamycin. She subsequently underwent a cervical disc surgery and was treated with cold Centrex. She is going to change to TALTZ which is a bilogical injection. She has no complaints related to her breast at this time[place] [address] this was benign BIRADS 1. She has not complained of any pain masses lumps or nodules in her breast. Family History: 1. paternal 7 siblings at 53 with stomach cancer 2. father: ulcer disease, dementia, Parkinson's disease 3. sister: multiple sclerosis Hormoanl HIstory: menarche: 15 , 1 misc[place]age menopause: 44 BCP: 9 years hormones: none, sister had a stroke Past surgical history: 1. Tonsillectomy 2. Manipulation right shoulder 2. Cholecystectomy 4. Eli which reversed on its own 5. Bilateral knee surgery with no 6. Reconstruction of left ankle 7. cervical laminectomy Past medical history: 1. Ankylosing spondylitis 2. Polyarticular arthritis 3. Fibromyalgia 4. 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 Recently diagnosed celiac disease 6. Cervical disc disease for which she is recommended to have cervical surgery 7. ulnar neuropathy in both arms Social History: smoke: none alcohol: wine every night drugs: has a marijuana card ROS: HEENT: Cervical syrnix, related to disc disease lungs: none heart: none GI: possible celiac disease : postmenopausal psych: negative Musculoskeletal: Ankylosing spondylitis, psoriatic arthritis, syrnix Endocrine: on synthroid, hypothyroid Hematologic: Negative Objective - Vital Signs Vital signs: Vital Signs Temp 98.4 F 05/02/21 10:25 Pulse 74 05/02/21 10:25 Resp 18 05/02/21 10:25 BP 125/84 05/02/21 10:25 Pulse Ox 99 05/02/21 10:25 Intake & Output 05/01/21 05/02/21 05/02/21 18:59 06:59 18:59 Weight 73.482 kg - Constitutional General appearance: Present: cooperative - EENT Eyes: Present: EOMI ENT: Present: hearing grossly normal - Neck Neck: Present: normal ROM - Respiratory Respiratory: bilateral: CTA - Cardiovascular Rhythm: regular Heart sounds: normal: S1, S2 - Gastrointestinal General gastrointestinal: Present: soft - Integumentary Integumentary: Present: normal turgor - Musculoskeletal Musculoskeletal: Present: gait normal - Psychiatric Psychiatric: Present: A&O x's 3, appropriate affect, intact judgment & insight - Additional findings Additional findings: Breast Exam: BRA: 38B inspection: Grade 2 ptosis bilaterally Palpation: Right breast: Well-healed scar from prior surgery, multiple positional exam no dominant masses or nodules of concern Right axilla: No adenopathy of concern Left breast: Multiple positional exam fibrocystic changes no dominant masses or nodules of concern Left axilla: No adenopathy of concern Assessment and Plan Assessment: Impression: 1. Fibrocystic breast changes bilateral 2. Bilateral mammogram performed on 820 521 benign BIRADS 1 3. No evidence of any breast abscesses 4. Ankylosing spondylitis 5. Psoriatic arthritis 6. Fibromyalgia 7. Patient is on immunotherapy Plan: 1. Bilateral mammogram in 1 year with physician exam at that time 2. Continued medical management of medical conditions CC: Dr. Cardenas
== END ==
LOC: WWCWWP 09:47
PROVIDERS: ATTEND Surgery
DX: N60.11 Diffuse cystic mastopathy of right breast (principal); N60.12 Diffuse cystic mastopathy of left breast; M45.9 Ankylosing spondylitis of unspecified sites in spine; L40.50 Arthropathic psoriasis, unspecified; M79.7 Fibromyalgia; Z79.899 Other long term (current) drug therapy; Z88.6 Allergy status to analgesic agent; Z88.0 Allergy status to penicillin; Z88.2 Allergy status to sulfonamides; Z91.018 Allergy to other foods

== ENCOUNTER → 2021-07-25 | Outpatient (CLI) | payer MEDICARE, BC ==
[2021-07-25 23:37] LABS: HCT 35.8 % (37.2-46.3); HGB 11.8 g/dL (12.0-15.0); MCH 33.3 pg (27.0-32.0); MCV 101.1 fL (80.0-97.0); Mean Platelet Volume 11.3 fL (9.5-12.2); Platelet Count 284 X 10*3/uL (140-440); RBC 3.54 X 10*6/uL (4.10-5.20); RDW 12.2 % (11.5-14.5); WBC 9.47 X 10*3/uL (4.50-10.00)
[2021-07-26 00:18] LABS: INR 0.94 (0.90-1.11); Prothrombin Time 10.4 sec (9.9-11.9)
[2021-07-26 01:16] LABS: African American GFR (CKD) 112.3 (60.0-200.0); Albumin 4.7 g/dL (3.8-4.9); Albumin/Globulin Ratio 2.24 (1.60-3.17); Anion Gap 13.9 mmol/L (10.00-18.00); BUN/Creat Ratio 21.71 Ratio (12.00-20.00); Blood Urea Nitrogen 15.2 mg/dL (9.0-27.0); Calcium 9.5 mg/dL (8.7-10.3); Carbon Dioxide 26.1 mmol/L (20.0-27.5); Globulin 2.1 g/dL (1.6-3.3); Non-African American GFR(CKD) 96.9 (60.0-200.0); Potassium 3.9 mmol/L (3.5-5.5); Total Bilirubin 0.3 mg/dL (0.30-1.20); Total Protein 6.8 g/dL (6.2-8.2)
== END | disposition home or self-care (01) ==
LOC: LABWHC1 13:49
PROVIDERS: ATTEND Orthopaedic Surgery Adult Reconstructive Orthopaedic Surgery
DX: Z01.812 Encounter for preprocedural laboratory examination (principal); Z13.1 Encounter for screening for diabetes mellitus; M25.562 Pain in left knee; M17.12 Unilateral primary osteoarthritis, left knee
CPT/HCPCS: 36415; 80053; 85027; 85610; 87070

== ENCOUNTER → 2021-07-30 | Outpatient (CLI) | payer MEDICARE, BC ==
--- NOTE | 2021-07-30 15:00 | BD ---
EXAMINATION TYPE: Axial Bone Density DATE OF EXAM: 07/30/2021 COMPARISON: DEXA bone scan May 19, 2019 CLINICAL HISTORY: Postmenopausal female. Height: 5 FT 2 1/4 IN Weight: 156 FRAX RISK QUESTIONS: Alcohol (3 or more units per day): NO Family History (Parent hip fracture): NO Glucocorticoids (More than 3mos): NO (Ex: prednisone, prednisolone, methylprednisolone, dexamethasone, and hydrocortisone). History of Fracture in Adulthood: NO Secondary Osteoporosis: 1. Type 1 Diabetes: NO 2. Hyperthyroidism: NO 3. Menopause before 45: YES 4. Malnutrition: NO 5. Chronic liver disease: NO Rheumatoid Arthritis: NO Current Tobacco Use: NO RISK FACTORS HISTORY OF: Surgery to Spine/Hip(right/left)/Wrist (right/left): C SPINE When: 2019 Family History of Osteoporosis: YES Active: NO Diet low in dairy products/other sources of calcium: NO Postmenopausal woman: YES Take estrogen and/or progesterone medications: NO Lost more than 2 inches in height since high school: NO Frequent falls: NO Poor Health: GOOD Hyperparathyroidism: NO Adrenal Insufficiency: NO MEDICATIONS: Thyroid Medications: YES Which medication: SYNTHROID How Long: MANY YEARS Additional Medications: NORCO NEEDED, SYNTHROID ,OMEPRAZOLE,AMITRIPTYLINE, GABAPENTIN, BACLOFEN, T YLENOL 3, AMLODIPINE, ATORVASTATIN, FUROSEMIDE, PENNSAID, TALTZ Additional History: RECENT KNEE REPLACEMENT EXAM MEASUREMENTS: Bone mineral densitometry was performed using the [employer] System. Bone mineral density as measured about the Lumbar spine is: ----- L1-L4(G/cm2): 0.813 T Score Values are as follows: ----- L2: -2.8 ----- L3: -3.0 ----- L4: -3.0 ----- L1-L4: -3.1 Bone mineral density has DECREASED -0.6 % SINCE STUDY 2018 Bone mineral density about the R hip (g/cm2): 0.826 Bone mineral density about the L hip (g/cm2): 0.788 T Score values are as follows: -----R Neck: -1.5 -----L Neck: -1.8 -----R Total: -1.7 -----L Total: -1.4 Bone mineral density has: DECREASED -4.6 % SINCE STUDY 2018 IMPRESSION: Osteoporosis (T Score less than -2.5) remains present. There remains increased fracture risk and therapy is usually indicated based on age. Re-Screen 1-2 years. NOTE: T-SCORE=SD OF THE YOUNG ADULT MEAN.
== END | disposition home or self-care (01) ==
LOC: RADBDWWP 14:20
PROVIDERS: ATTEND Obstetrics & Gynecology
DX: M81.0 Age-related osteoporosis without current pathological fracture (principal); M85.89 Other specified disorders of bone density and structure, multiple sites; Z78.0 Asymptomatic menopausal state
CPT/HCPCS: 77080

== ENCOUNTER → 2021-09-19 | Outpatient (CLI) | payer OTHER, MEDICARE ==
--- NOTE | 2021-09-19 10:31 | P.PN ---
Subjective Progress Note Date: 09/19/21 Principal diagnosis: breast pain fibrocystic breast changes Tatum is a 55 year old white female with a right breast abscess treated with clindamycin. She subsequently underwent a cervical disc surgery and was treated with Cosentyx. She was going to change to TALTZ which is a bilogical injection, however this was not obtained secondary to insurance. She had a right breast core biopsy on 02-01-19 which revealed fibrocystic changes including inflamed cyst wall with cyst contents. She underwent on June 20, 2021 right knee surgery replacement. The following day she experienced 2 weeks worth of sharp pain in her right breast. On 08/15/2021 her left knee placement surgery was performed. She then experienced repeat right breast pain which lasted for 2 weeks and is now resolving. She underwent a bilateral mammogram on this was benign BIRADS 1. She has not complaining of any pain masses lumps or nodules in her breast. Caffeine: 2 cups of coffee per day Nicotine: Negative Chocolate: Occasional Hormones: Negative Family History: 1. paternal 7 siblings at 53 with stomach cancer 2. father: ulcer disease, dementia, Parkinson's disease 3. sister: multiple sclerosis Hormoanl HIstory: menarche: 15 , 1 misc[place] menopause: 44 BCP: 9 years hormones: none, sister had a stroke Past surgical history: 1. Tonsillectomy 2. Manipulation right shoulder 2. Cholecystectomy 4. Eli which reversed on its own 5. Bilateral knee surgery with no 6. Reconstruction of left ankle 7. cervical laminectomy 8. bilateral knee replacement Past medical history: 1. Ankylosing spondylitis 2. Polyarticular arthritis 3. Fibromyalgia 4. 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 Recently diagnosed celiac disease 6. Cervical disc disease for which she is recommended to have cervical surgery 7. ulnar neuropathy in both arms Social History: smoke: none alcohol: wine every night drugs: has a marijuana card ROS: HEENT: Cervical syrnix, related to disc disease lungs: none heart: none GI: possible celiac disease : postmenopausal psych: negative Musculoskeletal: Ankylosing spondylitis, psoriatic arthritis, syrnix Endocrine: on synthroid, hypothyroid Hematologic: Negative Objective - Constitutional General appearance: Present: cooperative - EENT Eyes: Present: EOMI ENT: Present: hearing grossly normal - Neck Neck: Present: normal ROM - Respiratory Respiratory: bilateral: CTA - Cardiovascular Rhythm: regular Heart sounds: normal: S1, S2 - Integumentary Integumentary: Present: normal - Musculoskeletal Musculoskeletal Comment(s): uses a cane; bilateral knee replacement - Psychiatric Psychiatric: Present: A&O x's 3, appropriate affect, intact judgment & insight - Additional findings Additional findings: Breast Exam: BRA: 38B inspection: Well-healed scar right breast from prior surgery Grade 2 ptosis bilaterally Palpation: Right breast: Multiple positional exam no dominant masses or nodules of concern tenderness eschar site no lumps masses or nodules of concern Right axilla: No adenopathy of concern Left breast: Multi-positional exam fibrocystic changes or dominant masses or nodules of concern Left axilla: No adenopathy of concern Assessment and Plan Assessment: Impression: Fibrocystic breast changes bilaterally Bilateral mammogram performed an 8020 521 benign BIRADS 1 No evidence of any breast abscesses Ankylosing spondylitis Psoriatic arthritis Fibromyalgia Patient recently bilateral knee replacement Patient presently is not on any immunotherapy. Plan: Bilateral mammogram in March with physician exam at that time Follow up sooner any questions or concerns CC: Dr. Cardenas Cause for her recent breast pain uncertain however at this time there is nothing which would warrant interventional biopsy of either breast.
== END ==
LOC: WWCWWP 10:01
PROVIDERS: ATTEND Surgery
DX: N60.11 Diffuse cystic mastopathy of right breast (principal); N60.12 Diffuse cystic mastopathy of left breast; M45.9 Ankylosing spondylitis of unspecified sites in spine; L40.50 Arthropathic psoriasis, unspecified; M79.7 Fibromyalgia; Z96.653 Presence of artificial knee joint, bilateral; Z88.6 Allergy status to analgesic agent; Z88.0 Allergy status to penicillin; Z88.2 Allergy status to sulfonamides; Z91.011 Allergy to milk products

== ENCOUNTER → 2021-10-24 | Outpatient (CLI) | payer OTHER, MEDICARE ==
--- NOTE | 2021-10-24 11:02 | XR ---
Cervical spine HISTORY: M 53.2 7 views of the cervical spine correlated prior exam 11/14/2020 Patient shows anterior cervical fusion and discectomy change at C4-C7 as on prior exam. There is obli teration of the disc spaces, intervertebral spacers are again noted. There is anatomic alignment. Los s of disc height suspected at C7-T1, mild anterolisthesis may be present. Facet arthropathy changes a re noted. No definite neural foraminal encroachment. Thoracic scoliosis is noted. Prevertebral soft t issues otherwise normal. Some mild loss of disc height C2-3, C3-4. Atherosclerotic vascular calcifica tions are noted. Cervical vertebral bodies show stable height, bone mineralization is mildly reduced. IMPRESSION: Degenerative disc disease. Stable postop changes and additional findings above. Thoracic scoliosis.
== END | disposition home or self-care (01) ==
LOC: RADXRMAIN 09:39
PROVIDERS: ATTEND Family Medicine
DX: M50.30 Other cervical disc degeneration, unspecified cervical region (principal); M47.812 Spondylosis without myelopathy or radiculopathy, cervical region; M41.84 Other forms of scoliosis, thoracic region
CPT/HCPCS: 72050

== ENCOUNTER → 2022-04-21 | Outpatient (CLI) | payer OTHER, MEDICARE ==
--- NOTE | 2022-04-21 09:53 | MM ---
Reason for Exam: Screening (asymptomatic). Last screening mammogram was performed 12 month(s) ago. Patient History: Menarche at age 15. First Full-Term at age 21. Postmenopausal. Patient has history of breast feeding. Hormonal Contraceptives for 9 months. 02/01/2019, Benign Cyst Aspiration on the right side. 02/01/2019, Benign Core Biopsy on the right side. Risk Values: Marivel 5 year model risk: 1.2%. NCI Lifetime model risk: 7.6%. Prior Study Comparison: 05/24/2018 Bilateral Screening Mammogram, [facility]. 11/29/2018 Bilateral Diagnostic Mammogram, [facility]. 02/01/2019 Right Diagnostic Mammogram, [facility]. 09/05/2019 Right Diagnostic Mammogram, [facility] 03/20/2020 Bilateral Diagnostic Mammogram, [facility]. 04/17/2021 Bilateral Diagnostic Mammogram, [facility]. Tissue Density: The breast tissue is heterogeneously dense. This may lower the sensitivity of mammography. Findings: Analyzed By CAD. There is a biopsy clip in the left breast. There is no suspicious group of microcalcifications or new suspicious mass in either breast. Overall Assessment: Negative, BI-RAD 1 Management: Screening Mammogram of both breasts. A clinical breast exam by your physician is recommended on an annual basis and results should be correlated with mammographic findings. Electronically signed and approved by: Nestor Wilson DO
== END | disposition home or self-care (01) ==
LOC: RADMAMWWP 07:25
PROVIDERS: ATTEND Surgery
DX: Z12.31 Encounter for screening mammogram for malignant neoplasm of breast (principal); Z78.0 Asymptomatic menopausal state
CPT/HCPCS: 77063; 77067

== ENCOUNTER → 2022-05-15 | Outpatient (CLI) | payer BC ==
[2022-05-15 11:23] VITALS: BP 121/86; PULSE 70; RESP 16; TEMP 98
--- NOTE | 2022-05-15 11:55 | P.PN ---
Subjective Progress Note Date: 05/15/22 Principal diagnosis: prior breast abcess right Tatum is a 56 year old white female with a right breast abscess treated with clindamycin. She subsequently underwent a cervical disc surgery and was treated with Cosentyx. She was going to change to TALTZ which is a bilogical injection, however this was not obtained secondary to insurance. She had a right breast core biopsy on 02-01-19 which revealed fibrocystic changes including inflamed cyst wall with cyst contents. She underwent on June 20, 2021 right knee surgery replacement. The following day she experienced 2 weeks worth of sharp pain in her right breast. On 08/15/2021 her left knee placement surgery was performed. She then experienced repeat right breast pain which lasted for 2 weeks and has now resolved. She underwent a bilateral mammogram on this was benign BIRADS 1. She has not compl aining of any pain masses lumps or nodules in her breast. Caffeine: 2 cups of coffee per day Nicotine: Negative Chocolate: Occasional Hormones: Negative Family History: 1. paternal 7 siblings at 53 with stomach cancer 2. father: ulcer disease, dementia, Parkinson's disease 3. sister: multiple sclerosis Hormonal History: menarche: 15 , 1 [place] menopause: 44 BCP: 9 years hormones: none, sister had a stroke Past surgical history: 1. Tonsillectomy 2. Manipulation right shoulder 2. Cholecystectomy 4. Eli which reversed on its own 5. Bilateral knee surgery with no 6. Reconstruction of left ankle 7. cervical laminectomy 8. bilateral knee replacement Past medical history: 1. Ankylosing spondylitis 2. Polyarticular arthritis 3. Fibromyalgia 4. 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 Recently diagnosed celiac disease 6. Cervical disc disease for which she is recommended to have cervical surgery 7. ulnar neuropathy in both arms Social History: smoke: none alcohol: wine every night drugs: has a marijuana card ROS: HEENT: Cervical syrnix, related to disc disease lungs: none heart: none GI: possible celiac disease : postmenopausal psych: negative Musculoskeletal: Ankylosing spondylitis, psoriatic arthritis, syrnix Endocrine: on synthroid, hypothyroid Hematologic: Negative Objective - Vital Signs Vital signs: Vital Signs Temp 98.0 F 05/15/22 11:19 Pulse 70 05/15/22 11:19 Resp 16 05/15/22 11:19 BP 121/86 05/15/22 11:19 Pulse Ox 98 05/15/22 11:19 FiO2 Intake & Output 05/14/22 05/15/22 05/15/22 18:59 06:59 18:59 Weight 76.657 kg - Constitutional General appearance: Present: cooperative - EENT Eyes: Present: EOMI ENT: Present: hearing grossly normal - Neck Neck: Present: normal ROM - Respiratory Respiratory: bilateral: CTA - Cardiovascular Heart sounds: normal: S1, S2 - Integumentary Integumentary: Present: normal turgor - Musculoskeletal Musculoskeletal Comment(s): uses a cane Musculoskeletal: Present: gait normal - Psychiatric Psychiatric: Present: A&O x's 3, appropriate affect, intact judgment & insight - Additional findings Additional findings: Breast Exam: BRA: 38B Inspection: grade 2 ptosis Palpation: right breast: Positional exam fibrocystic changes no dominant masses or nodules of concern Right axilla: No adenopathy of concern Left breast: Multi-positional exam fibrocystic changes no dominant masses or nodules of concern Left axilla: No adenopathy of concern Assessment and Plan Assessment: Fibrocystic breast changes, prior abscess right breast no evidence of abscess at this time Plan: Bilateral mammogram 1 year with physician exam at that time CC: Dr. Cardenas
== END ==
LOC: WWCWWP 11:01
PROVIDERS: ATTEND Surgery
DX: N60.11 Diffuse cystic mastopathy of right breast (principal); N60.12 Diffuse cystic mastopathy of left breast; Z88.2 Allergy status to sulfonamides; Z88.0 Allergy status to penicillin; Z88.6 Allergy status to analgesic agent; Z91.011 Allergy to milk products

== ENCOUNTER → 2022-09-17 | Outpatient (CLI) | payer BC, MEDICARE ==
[2022-09-17 20:02] LABS: African American GFR (CKD) 101.1 (60.0-200.0); Albumin 4.8 g/dL (3.8-4.9); Albumin/Globulin Ratio 2.29 (1.60-3.17); Anion Gap 11.2 mmol/L (10.00-18.00); BUN/Creat Ratio 13.97 Ratio (12.00-20.00); Blood Urea Nitrogen 10.6 mg/dL (9.0-27.0); Calcium 9.4 mg/dL (8.7-10.3); Carbon Dioxide 27.3 mmol/L (20.0-27.5); Globulin 2.1 g/dL (1.6-3.3); Non-African American GFR(CKD) 87.2 (60.0-200.0); Potassium 4.2 mmol/L (3.5-5.5); Total Bilirubin 0.4 mg/dL (0.30-1.20); Total Protein 6.9 g/dL (6.2-8.2)
== END | disposition home or self-care (01) ==
LOC: LABWHC1 11:08
PROVIDERS: ATTEND Internal Medicine Endocrinology, Diabetes & Metabolism
DX: E21.5 Disorder of parathyroid gland, unspecified (principal)
CPT/HCPCS: 36415; 80053; 81050; 82306; 83970

== ENCOUNTER → 2022-12-13 | Outpatient (CLI) | payer MEDICARE ==
[2022-12-13 23:46] LABS: Basophils # (A) 0.03 X 10*3/uL (0.00-0.10); Basophils % (A) 0.7 %; Eosinophils % (A) 2.5 %; HCT 36.3 % (37.2-46.3); HGB 12.9 g/dL (12.0-15.0); Immature Grans, Automated 0.2 %; Lymphocytes # (A) 1.15 X 10*3/uL (0.90-5.00); Lymphocytes % (A) 28.7 %; MCH 34.8 pg (27.0-32.0); MCHC 35.5 g/dL (32.0-37.0); MCV 97.8 fL (80.0-97.0); Mean Platelet Volume 10.5 fL (9.5-12.2); Monocytes # (A) 0.39 X 10*3/uL (0.20-1.00); Monocytes % (A) 9.7 %; NRBC Per 100 WBC 0 /100 WBCS (0.0-0.0); Neutrophils # (A) 2.33 X 10*3/uL (1.80-7.70); Neutrophils % (A) 58.2 %; Platelet Count 340 X 10*3/uL (140-440); RBC 3.71 X 10*6/uL (4.10-5.20); RDW 12.2 % (11.5-14.5); WBC 4.01 X 10*3/uL (4.50-10.00)
[2022-12-14 08:35] LABS: African American GFR (CKD) 104.9 (60.0-200.0); Albumin 4.7 g/dL (3.8-4.9); Albumin/Globulin Ratio 2.21 (1.60-3.17); Anion Gap 12.4 mmol/L (10.00-18.00); BUN/Creat Ratio 10.71 Ratio (12.00-20.00); Blood Urea Nitrogen 7.8 mg/dL (9.0-27.0); Calcium 8.8 mg/dL (8.7-10.3); Globulin 2.1 g/dL (1.6-3.3); Non-African American GFR(CKD) 90.5 (60.0-200.0); Phosphorus 2.7 mg/dL (2.4-5.1); Potassium 3.6 mmol/L (3.5-5.5); Total Bilirubin 0.5 mg/dL (0.30-1.20); Total Protein 6.8 g/dL (6.2-8.2)
[2022-12-14 08:36] LABS: T4, Free (Free Thyroxine) 1.57 ng/dL (0.800-1.800)
== END | disposition home or self-care (01) ==
LOC: LABWHC1 10:45
PROVIDERS: ATTEND Internal Medicine
DX: E03.9 Hypothyroidism, unspecified (principal); E55.9 Vitamin D deficiency, unspecified; E34.9 Endocrine disorder, unspecified
CPT/HCPCS: 36415; 80053; 82306; 83970; 84100; 84439; 84443; 85025; 86376; 87086; 93005

== ENCOUNTER 2022-12-22 05:54 | Day surgery (SDC) | payer MEDICARE ==
[2022-12-16 15:45] VITALS: BMI 30.6
--- NOTE | 2022-12-19 07:36 | HP ---
HISTORY AND PHYSICAL An admit H and P for surgery on December 22. HISTORY OF PRESENT ILLNESS: This is a 57-year-old female presented from Dr. Luz's care with complaint of increasing pelvic pressure and bulge. She is menopausal, not receiving hormone replacement therapy. She has no history of vaginal bleeding. She denies issues with urinary incontinence or issues with defecation. She was found to have a uterine prolapse and cystocele and is requesting surgical repair via vaginal hysterectomy and anterior colporrhaphy. REVIEW OF SYSTEMS: Otherwise negative. PAST MEDICAL HISTORY: Significant for anemia, ankylosing spondylitis, osteoporosis, poor blood clotting, psoriatic arthritis, thyroid disease, and ulcer. PAST SURGICAL HISTORY: Cholecystectomy, hiatal hernia repair. CURRENT MEDICATIONS: 1. Synthroid 112 mcg daily. 2. Gabapentin 300 mg pills 3 times daily. 3. Furosemide 20 mg once daily. 4. Fosamax 70 mg once weekly. 5. Cosentyx 150 mg subcutaneous syringe every 4 weeks in the abdomen, thigh, or upper arm. 6. Baclofen 10 mg 3 times daily. 7. Atorvastatin 10 mg at bedtime. 8. Amlodipine 10 mg by mouth once daily. 9. Amitriptyline 10 mg by mouth at bedtime. ALLERGIES: Include aspirin to which she reports swelling and hives, penicillin and sulfa drugs to which she reports swelling and hives. REPRODUCTIVE HISTORY: Significant for vaginal deliveries x2, in 1986 and 1991, both healthy pregnancies. SOCIAL HISTORY: Significant for the patient being . She denies alcohol, tobacco, or drug use. PHYSICAL EXAMINATION: VITAL SIGNS: The patient is 5 feet 2 inches, 165 pounds, blood pressure 124/90. HEENT: Reveals good dentition, no thyromegaly, no unusual adenopathy. CHEST: Clear to auscultation in all martins anteriorly and posteriorly. CARDIAC: Reveals regular rate and rhythm with no murmur, click, or rub. ABDOMEN: Soft and nontender, no hepatosplenomegaly, no tenderness. Active bowel sounds noted. No CVA tenderness. BREASTS: Negative, no discernible lesions or masses, skin changes, nipple discharge, or axillary adenopathy. PELVIC: External genitalia are age-appropriate with no discharge or inflammatory lesions. There is a grade 3 to 4 cystocele noted, along with a grade 3 to 4 uterine prolapse. Cervix appears healthy, Pap smear up to date and negative. Adnexa are negative, small, mobile, and nontender. RECTAL: Reveals good sphincter tone, FIT negative stool, no hemorrhoids, no obvious rectocele. IMPRESSION: Increasingly symptomatic uterine prolapse and grade 3 cystocele, wishing surgical repair, declining option of pessary. PLAN: We will proceed with vaginal hysterectomy and anterior colporrhaphy. The ACOG pamphlet on pelvic support problems has been given and reviewed thoroughly. The risks of bleeding, infection, perforation or damage to the bowel, bladder, ureters, blood vessels, all reviewed. Risks of anesthesia, aspiration, nerve damage all discussed. All questions answered. We will proceed with surgery at [facility] as above on 12/22/2022. MMODL / IJN: [id number] /
[2022-12-22] MEDS ORDERED: HYDROmorphone 0.5 MG/0.5 ML SYRINGE IVP PRN (06:15)
[2022-12-22] MEDS ORDERED: ONDANSETRON 4 MG/2 ML VIAL IVP ONE (06:15)
[2022-12-22] MEDS ORDERED: DEXAMETHASONE SOD PHOSPHATE 4 MG/ML 1 ML VIAL IV ONE (06:15)
[2022-12-22] MEDS ORDERED: ONDANSETRON 4 MG/2 ML VIAL ONE (06:17)
[2022-12-22] MEDS ORDERED: LACTATED RINGERS 1,000 ML IV ONE ×3 (06:23→08:55)
[2022-12-22] MEDS ORDERED: MIDAZOLAM 2 MG/2 ML VIAL IVP ONE (07:08)
[2022-12-22] MEDS ORDERED: BACITRACIN OINT 1 EACH PACKET TOPICAL ONE ×2 (07:15→08:15)
[2022-12-22] MEDS ORDERED: VASOPRESSIN 20 UNIT/ML 1 ML VIAL SQ ONE ×3 (07:16→07:45)
[2022-12-22] MEDS ORDERED: MORPHINE SULFATE (PF) 0.3 MG/0.3 ML SYR ONE (07:24)
[2022-12-22] MEDS ORDERED: SUCCINYLCHOLINE CHLORIDE 200 MG/10 ML VIAL IV ONE (07:24)
[2022-12-22] MEDS ORDERED: MIDAZOLAM 2 MG/2 ML VIAL ONE (07:24)
[2022-12-22] MEDS ORDERED: GLYCOPYRROLATE 0.2 MG/ML 2 ML VIAL ONE (07:24)
[2022-12-22] MEDS ORDERED: PROPOFOL 10 MG/ML 20 ML VIAL IV ONE (07:24)
[2022-12-22] MEDS ORDERED: ePHEDrine 50 MG/ML 1 ML VIAL ONE (07:24)
[2022-12-22] MEDS ORDERED: LIDOCAINE 2% INJ 20 MG/ML (2 ML VIAL) ONE (07:24)
[2022-12-22] MEDS ORDERED: ONDANSETRON 4 MG/2 ML VIAL IVP PRN (08:45)
[2022-12-22] MEDS ORDERED: SIMETHICONE 80 MG CHEWABLE PO PRN (08:45)
[2022-12-22] MEDS ORDERED: METOCLOPRAMIDE 5 MG/ML 2 ML VIAL IVP PRN (08:45)
[2022-12-22] MEDS ORDERED: diphenhydrAMINE 50 MG/ML 1 ML VIAL IVP PRN (08:45)
--- NOTE | 2022-12-22 08:45 | P.OP ---
Date of Procedure: 12/22/22 Preoperative Diagnosis: Increasingly symptomatic uterine prolapse and cystocele Postoperative Diagnosis: Same, normal-appearing ovaries bilaterally Procedure(s) Performed: Vaginal hysterectomy, anterior colporrhaphy Anesthesia: ROSSYA Surgeon: Yady Núñez Freight Receiver #1: Reji Padilla Estimated Blood Loss (ml): 50 IV fluids (ml): 400 Urine output (ml): 150 Pathology: other (Cervix and uterus) Condition: stable Disposition: PACU Operative Findings: Normal-appearing atrophic ovaries bilaterally Description of Procedure: Patient is brought to the operating suite after spinal with Duramorph is placed preoperatively. She's placed in the dorsal lithotomy position after a general anesthetic is administered. The cervix, vagina, perineal body and lower abdominal areas are all prepped and draped in usual sterile fashion. Antibiotics are given. The appropriate timeout is performed to assure proper patient and procedural identification. The bladder is drained for approximately 150 mL of clear yellow urine. Weighted speculum was placed into the vagina and the anterior lip of the cervix is grasped with a double-tooth tenaculum. The cervix is injected circumferentially with a dilute Pitressin solution. A pit river blade scalpel is used to incise the mucosa circumferentially with a V position at 6:00. Sponge rolled finger is used to sweep the mucosa from the underlying f ascial plane, at all times keeping the mucosa well out of range of the surgical field to avoid bladder and/or ureteral injury. Peritoneum is entered at 6:00 and suture tied with 2-0 Vicryl, held with a hemostat. The large billed speculum is now placed into the peritoneal cavity. The right uterosacral ligament is identified, clamped cut and suture ligated, held with hemostat laterally. Same procedure is carried out laterally. Uterine vasculature is identified, skeletonized, clamped cut and suture ligated. 2 additional pedicles are taken superior to the vessels. Again, the bladder is swept well from the operative field at all times. Anterior peritoneum is entered at 12:00. Gavin clamps are used across the final pedicles and the cervix and uterus are removed and sent to pathology for evaluation. The pedicles are tied securely with 0 Vicryl suture, flashed, retied for excellent hemostasis. Sponge stick is used to identify both ovaries, both of which appear normal, atrophic, high in the peritoneal cavity, and left in situ per the patient's wishes. All pedicles are hemostatically intact, clean and dry. The speculum is then switched to the shallow billed speculum. The 2-0 Vicryl suture at 6:00 is brought around in a circumferential fashion now to close the peritoneum. The uterosacral cardinal ligament complex stitches are brought across to incorporate the opposite complex and vaginal mucosa. 2 additional [id number] sutures of 0 Vicryl are used to close the vaginal cough. The anterior repair is commenced. Allis clamps are used on the anterior mucosal opening. The mucosa is opened in the midline after injecting with the same dilute Pitressin solution. Metzenbaum scissors are used to undermine and open the mucosa to approximately 1.5 cm inferior to the urethra. The edges are held with Allis clamps. The vaginal mucosa is swept from the underlying fascial plane bilaterally. Brandt catheter is placed, bladder is drained and urine appears clear. 2-0 Vicryl is used in an interrupted fashion now to bring together the fascial edges in the midline thereby completely reducing the cystocele. Metzenbaum scissors are used to trim the redundant mucosa. 2-0 Vicryl sutures used in a running locking stitch to close the anterior mucosa in its entirety. All martins are clean and dry. One- inch iodophor gauze with basic tracing is used to pack the vagina. Brandt is noted to be draining clear urine. All sponge needle and enhancement counts are correct. Patient is brought back to recovery room in excellent condition with stable vital signs including blood pressure 116/78, pulse 98, 100% O2 saturation.
[2022-12-22 10:14] VITALS: RESP 18
[2022-12-22] MEDS: LACTATED RINGERS 1,000 ML IV SCH (12:11)
[2022-12-22] MEDS: ACETAMINOPHEN TAB 500 MG TAB PO PRN (17:13)
[2022-12-22] MEDS ORDERED: BACLOFEN 10 MG TAB PO SCH (21:00)
[2022-12-22] MEDS ORDERED: GABAPENTIN 400 MG CAP PO SCH (21:00)
[2022-12-22] MEDS: IBUPROFEN 600 MG TAB PO PRN (21:03)
[2022-12-23 00:35] VITALS: PULSE 68
[2022-12-23] MEDS: ACETAMINOPHEN TAB 500 MG TAB PO PRN (03:18)
--- NOTE | 2022-12-23 05:45 | P.PN ---
Progress Note - Text Progress Note Date: 12/23/22 Postoperative day 1 status post hysterectomy under general anesthesia with intrathecal Duramorph for postoperative analgesia.The patient is doing well, there is mild generalized skin itching. The patient denies any paresthesia or weakness in the lower extremities . The patient had mild positional headache which responded well to Tylenol. She denies any headache at this point. There are no other anesthesia related complications. Further management as per the patient primary team.
[2022-12-23 07:19] VITALS: BP 108/69; TEMP 97.9
[2022-12-23] MEDS: IBUPROFEN 600 MG TAB PO PRN (07:19)
--- NOTE | 2022-12-23 07:50 | P.DS ---
Providers Date of admission: 12/22/22 Expected date of discharge: 12/23/22 Attending physician: Yady Núñez Primary care physician: [facility] Course: This is a 67-year-old female who presented with an increasingly symptomatic uterine prolapse and cystocele, requesting surgical repair. Please see dictated history and physical for details. Yesterday under my care she underwent a vaginal hysterectomy and anterior colporrhaphy, did very well intraoperatively. The ovaries were inspected, normal to inspection, and left in situ per her wishes. She did receive a spinal with Duramorph analgesia, vagina was packed with one-inch iodophor gauze, Brandt catheter placed. Please see my dictated operative note for details. This morning the Brandt catheter and the vaginal packing had been removed. Patient is awaiting her first spontaneous void, after which residual will be checked. If residuals are reasonable, plan is for discharge home later this morning. She will follow-up with me in the office in 2 weeks. I have reminded her no intercourse, tampons or douching. She will continue all of her home medications as preoperatively. She will use [id number] Advil, Aleve, or Motrin as needed for pain. I've asked her to call with any fevers shakes or chills, foul smelling or bloody vaginal drainage, with any difficulties voiding or defecating, or indeed with any questions or concerns. Assessment: Doing well post operative day #1 Patient Condition at Discharge: Good Plan - Discharge Summary Discharge Rx Participant: No New Discharge Prescriptions: No Action Multivit with Calcium,Iron,Min [Women's Daily Multivitamin] 1 tab PO DAILY Lysine [l-Lysine] 500 mg PO DAILY Calcium Carbonate [Calcium] 1,500 mg PO DAILY Cyanocobalamin (Vitamin B-12) [Vitamin B-12] 1,000 mcg PO DAILY Amitriptyline HCl 40 mg PO HS Omeprazole 40 mg PO DAILY Levothyroxine Sodium [Synthroid] 100 mcg PO DAILY Acetaminophen Tab [Tylenol Tab] 650 mg PO Q6H PRN PRN Reason: Pain Ibuprofen [Motrin] 800 mg PO TID PRN PRN Reason: Pain Fluticasone Nasal [place] [Flonase Nasal [place]] 1 spray EA NOSTRIL DAILY PRN PRN Reason: Allergic Reaction Baclofen 10 mg PO HS Atorvastatin [Lipitor] 10 mg PO HS Furosemide [Lasix] 20 mg PO DAILY Gabapentin [Neurontin] 100 mg PO DAILY Alendronate Sodium [Fosamax] 70 mg PO WHITMAN Gabapentin [Neurontin] 400 mg PO HS Secukinumab [Cosentyx Pen (2 Pens)] 150 mg SQ Q30D Discharge Medication List Multivit with Calcium,Iron,Min [Women's Daily Multivitamin] 1 tab PO DAILY 02/06/16 [History] Amitriptyline HCl 40 mg PO HS 11/26/18 [History] Calcium Carbonate [Calcium] 1,500 mg PO DAILY 11/26/18 [History] Cyanocobalamin (Vitamin B-12) [Vitamin B-12] 1,000 mcg PO DAILY 11/26/18 [History] Lysine [l-Lysine] 500 mg PO DAILY 11/26/18 [History] Omeprazole 40 mg PO DAILY 01/19/19 [History] Levothyroxine Sodium [Synthroid] 100 mcg PO DAILY 02/01/19 [History] Acetaminophen Tab [Tylenol Tab] 650 mg PO Q6H PRN 02/16/19 [History] Ibuprofen [Motrin] 800 mg PO TID PRN 02/16/19 [History] Baclofen 10 mg PO HS 09/08/19 [History] Fluticasone Nasal [place] [Flonase Nasal [place]] 1 spray EA NOSTRIL DAILY PRN 09/08/19 [History] Alendronate Sodium [Fosamax] 70 mg PO WHITMAN 05/15/22 [History] Atorvastatin [Lipitor] 10 mg PO HS 05/15/22 [History] Furosemide [Lasix] 20 mg PO DAILY 05/15/22 [History] Gabapentin [Neurontin] 100 mg PO DAILY 12/16/22 [History] Gabapentin [Neurontin] 400 mg PO HS 12/16/22 [History] Secukinumab [Cosentyx Pen (2 Pens)] 150 mg SQ Q30D 12/16/22 [History] Follow up Appointment(s)/Referral(s): Yady Núñez MD [STAFF PHYSICIAN] - 2 Weeks Discharge Disposition: HOME SELF-CARE
[2022-12-23] MEDS ORDERED: ACETAMINOPHEN TAB 325 MG TAB PO PRN (08:47)
[2022-12-23] MEDS: LACTATED RINGERS 1,000 ML IV SCH (09:19)
== END 2022-12-23 10:15 | disposition home or self-care (01) ==
LOC: OR 05:54 → 4FBP 09:23 → OR 12-23 10:15
PROVIDERS: ATTEND Obstetrics & Gynecology
DX: N80.03 Adenomyosis of the uterus (principal); N81.10 Cystocele, unspecified; M81.0 Age-related osteoporosis without current pathological fracture; D64.9 Anemia, unspecified; M45.9 Ankylosing spondylitis of unspecified sites in spine; E07.9 Disorder of thyroid, unspecified; Z90.49 Acquired absence of other specified parts of digestive tract; Z79.51 Long term (current) use of inhaled steroids; Z79.899 Other long term (current) drug therapy; Z88.2 Allergy status to sulfonamides; Z88.6 Allergy status to analgesic agent; Z88.0 Allergy status to penicillin
CPT/HCPCS: 86900; 86901; 86850; 88307; 58260; 57240; J2250; J1100; J0690; J2405

== ENCOUNTER 2023-01-04 21:37 | Emergency (ER) | payer MEDICARE ==
[2023-01-04 21:46] VITALS: PULSE 69; TEMP 97.4
--- NOTE | 2023-01-04 22:26 | ED ---
Female Urogenital HPI - General Chief complaint: Vaginal Bleeding Stated complaint: hemorrhaging Time Seen by Provider: 01/04/23 21:53 Source: patient, RN notes reviewed Mode of arrival: ambulatory Limitations: no limitations - History of Present Illness Initial comments: This is a 57-year-old female who presents to the emergency department for vaginal bleeding. On 12/22, the patient had a partial hysterectomy. She had been recovering well without any issues. Earlier today, her dogs were running around and slammed into her lower abdominal area. She was doing fine until this evening when she started to have constant vaginal bleeding. States that this has been going through her clothes, she is unable to say how many pads she has gone through. She is having minor lower abdominal cramping. Denies any nausea or vomiting. Also denies any dizziness or lightheadedness. Denies any fevers, chills, sore throat, cough, dyspnea, chest pain, palpitations, nausea, vomiting, diarrhea, back pain, or headaches. MD Complaint: vaginal bleeding - Related Data Home Medications Medication Instructions Recorded Confirmed Multivit with Calcium,Iron,Min 1 tab PO DAILY 02/06/16 12/22/22 [Women's Daily Multivitamin] Amitriptyline HCl 40 mg PO HS 11/26/18 12/22/22 Calcium Carbonate [Calcium] 1,500 mg PO DAILY 11/26/18 12/22/22 Cyanocobalamin (Vitamin B-12) 1,000 mcg PO DAILY 11/26/18 12/22/22 [Vitamin B-12] Lysine [l-Lysine] 500 mg PO DAILY 11/26/18 12/22/22 Omeprazole 40 mg PO DAILY 01/19/19 12/22/22 Levothyroxine Sodium [Synthroid] 100 mcg PO DAILY 02/01/19 12/22/22 Acetaminophen Tab [Tylenol Tab] 650 mg PO Q6H PRN 02/16/19 12/22/22 Ibuprofen [Motrin] 800 mg PO TID PRN 02/16/19 12/22/22 Baclofen 10 mg PO HS 09/08/19 12/22/22 Fluticasone Nasal [place] [Flonase 1 spray EA NOSTRIL DAILY PRN 09/08/19 12/22/22 Nasal [place]] Alendronate Sodium [Fosamax] 70 mg PO WHITMAN 05/15/22 12/22/22 Atorvastatin [Lipitor] 10 mg PO HS 05/15/22 12/22/22 Furosemide [Lasix] 20 mg PO DAILY 05/15/22 12/22/22 Gabapentin [Neurontin] 100 mg PO DAILY 12/16/22 12/22/22 Gabapentin [Neurontin] 400 mg PO HS 12/16/22 12/22/22 Secukinumab [Cosentyx Pen (2 Pens)] 150 mg SQ Q30D 12/16/22 12/22/22 Allergies Allergy/AdvReac Type Severity Reaction Status Date / Time aspirin Allergy Rash/Hives Verified 12/22/22 06:23 Penicillins Allergy Rash/Hives Verified 12/22/22 06:23 Sulfa (Sulfonamide Allergy Rash/Hives Verified 12/22/22 06:23 Antibiotics) lactose AdvReac Severe GI problems Verified 12/22/22 06:23 Review of Systems ROS Statement: Those systems with pertinent positive or pertinent negative responses have been documented in the HPI. ROS Other: All systems not noted in ROS Statement are negative. Past Medical History Past Medical History: Fibromyalgia, GERD/Reflux, Hyperlipidemia Additional Past Medical History / Comment(s): Hx migraines, palpitations, varic ose veins, hx ulcer, hiatal hernia, frequent diarrhea, ankylosing spondylitis, seeing Dr. Caro this afternoon regarding an infection on her R breast. History of Any Multi-Drug Resistant Organisms: None Reported Past Surgical History: Hysterectomy, Orthopedic Surgery, Tonsillectomy Additional Past Surgical History / Comment(s): Eli fundoplication, reconstruction left ankle, manipulation rt shoulder, prior colonoscopy & Endoscopy. Past Anesthesia/Blood Transfusion Reactions: Motion Sickness, Postoperative Nausea & Vomiting (PONV) Past Psychological History: No Psychological Hx Reported Smoking Status: Never smoker Past Alcohol Use History: Occasional Past Drug Use History: None Reported - Past Family History Father Family Medical History: Deep Vein Thrombosis (DVT) Mother Family Medical History: COPD General Exam Limitations: no limitations General appearance: alert, in no apparent distress Head exam: Present: atraumatic, normocephalic, normal inspection Respiratory exam: Present: normal lung sounds bilaterally. Absent: respiratory distress, wheezes, rales, rhonchi, stridor Cardiovascular Exam: Present: regular rate, normal rhythm, normal heart sounds. Absent: systolic murmur, diastolic murmur, rubs, gallop, clicks GI/Abdominal exam: Present: soft, normal bowel sounds. Absent: distended, tenderness, guarding, rebound, rigid External exam: Present: other (Pt declined) Neurological exam: Present: alert, oriented X3, CN II-XII intact Psychiatric exam: Present: normal affect, normal mood Skin exam: Present: warm, dry, intact, normal color. Absent: rash Course Vital Signs 01/04/23 01/04/23 21:43 23:44 Temperature 97.4 F L Pulse Rate 69 69 Respiratory 20 18 Rate Blood Pressure 154/88 152/92 O2 Sat by Pulse 98 100 Oximetry Medical Decision Making - Medical Decision Making This is a 57-year-old female who presents to the emergency department for vaginal bleeding. Was pt. sent in by a medical professional or institution? @ -No Did you speak to anyone other than the patient for history? @ -No Did you review nursing and triage notes? @ -Yes, and I agree, it is accurate with regards to the patient's symptoms. Were old charts reviewed? @ -No Differential Diagnosis? @ -Differential Vaginal Bleeding: Malignancy, coagulopathy, PID, surgery complication, internal injury, vaginal trauma, this is not meant to be an all-inclusive list. CT interpreted by me (1pt min.)? @ -CT scan of the abdomen and pelvis obtained. My interpretation identifies no evidence of bowel wall thickening, free air, or free fluid in the pelvis. What testing was considered but not performed? (CT, X-rays, U/S, labs)? Why? @ -None What meds were considered but not given? Why? @ -None Did you discuss the management of the patient with other professionals? @ -No Did you reconcile home meds? @ -No Was smoking cessation discussed for >3mins.? @ -No Was critical care preformed (if so, how long)? @ -No Were there social determinants of health that impacted care today? How? (Homelessness, low income, unemployed, alcoholism, drug addiction, transportation, low edu. Level, literacy, decrease access to med. care, halfway, rehab)? @ -No Was there de-escalation of care discussed even if they declined? (Discuss DNR or withdrawal of care, Hospice)? @ -No What co-morbidities impacted this encounter? (DM, HTN, Smoking, COPD, CAD, Cancer, CVA, Hep., AIDS, mental health diagnosis, sleep apnea, morbid obesity)? @ -None Was patient admitted / discharged? @ -Discharged. Lab work obtained and found to be nonactionable. Urinalysis does reveal a large amount of blood. Computed tomography scan of the abdomen an d pelvis obtained revealing no acute findings. I did strongly recommend a pelvic exam, however the patient declined. Advised that it is unclear what is causing the bleeding. While in the examination room, patient states that the bleeding did start to improve and she was largely passing clots at that point. Patient instructed to contact Dr. Núñez's office first thing in the morning for a follow-up appointment and reevaluation of symptoms. Strict return parameters discussed, in that if the bleeding returns and becomes severe, or she develops dizziness/lightheadedness, she should return to the emergency department. Undiagnosed new problem with uncertain prognosis? @ -None Drug Therapy requiring intensive monitoring for toxicity (Heparin, Nitro, Insulin, Cardizem)? @ -None Were any procedures done? @ -None Diagnosis/symptom? @ -Vaginal bleeding Acute, or Chronic, or Acute on Chronic? @ -Acute Uncomplicated (without systemic symptoms) or Complicated (systemic symptoms)? @ -Uncomplicated Side effects of treatment? @ -None Exacerbation, Progression, or Severe Exacerbation] @ -Not applicable Poses a threat to life or bodily function? @ -No Return precautions reviewed in depth, the patient is instructed to return to the emergency department with any new, worsening, or concerning symptoms. Patient verbalized understanding. This case was discussed in detail with the attending ED physician, Dr. Avlia. Presentation, findings, and treatment plan discussed in detail as well. - Lab Data Result diagrams: 01/04/23 22:05 01/04/23 22:05 Lab Results 01/04/23 01/04/23 01/04/23 Range/Units 22:05 22:05 22:05 WBC 7.2 (3.8-10.6) k/uL RBC 3.82 (3.80-5.40) m/uL Hgb 12.3 (11.4-16.0) gm/dL Hct 36.5 (34.0-46.0) % MCV 95.8 (80.0-100.0) fL MCH 32.2 (25.0-35.0) pg MCHC 33.6 (31.0-37.0) g/dL RDW 12.5 (11.5-15.5) % Plt Count 380 (150-450) k/uL MPV 7.6 Neutrophils % 60 % Lymphocytes % 29 % Monocytes % 4 % Eosinophils % 3 % Basophils % 1 % Neutrophils # 4.3 (1.3-7.7) k/uL Lymphocytes # 2.1 (1.0-4.8) k/uL Monocytes # 0.3 (0-1.0) k/uL Eosinophils # 0.2 (0-0.7) k/uL Basophils # 0.1 (0-0.2) k/uL Sodium 140 (137-145) mmol/L Potassium 3.8 (3.5-5.1) mmol/L Chloride 101 (98-107) mmol/L Carbon Dioxide 28 (22-30) mmol/L Anion Gap 11 mmol/L BUN 13 (7-17) mg/dL Creatinine 0.63 (0.52-1.04) mg/dL Est GFR (CKD-EPI)AfAm >90 (>60 ml/min/1.73 sqM) Est GFR (CKD-EPI)NonAf >90 (>60 ml/min/1.73 sqM) Glucose 101 H (74-99) mg/dL Plasma Lactic Acid Paco (0.7-2.0) mmol/L Calcium 9.0 (8.4-10.2) mg/dL Total Bilirubin 0.4 (0.2-1.3) mg/dL AST 28 (14-36) U/L ALT 23 (4-34) U/L Alkaline Phosphatase 77 (38-126) U/L Total Protein 8.0 (6.3-8.2) g/dL Albumin 5.0 (3.5-5.0) g/dL Urine Color Light Red Urine Appearance Clear (Clear) Urine pH 7.0 (5.0-8.0) Ur Specific [place] 1.003 (1.001-1.035) Urine Protein 2+ H (Negative) Urine Glucose (UA) Negative (Negative) Urine Ketones Negative (Negative) Urine Blood Large H (Negative) Urine Nitrite Negative (Negative) Urine Bilirubin Negative (Negative) Urine Urobilinogen <2.0 (<2.0) mg/dL Ur Leukocyte Esterase Trace H (Negative) Urine RBC 49 H (0-5) /hpf Urine WBC 3 (0-5) /hpf Urine Bacteria Rare H (None) /hpf Urine Mucus Rare H (None) /hpf Blood Type Blood Type Recheck Bld Type Recheck Status Antibody Screen Spec Expiration Date 01/04/23 01/04/23 Range/Units 22:05 22:05 WBC (3.8-10.6) k/uL RBC (3.80-5.40) m/uL Hgb (11.4-16.0) gm/dL Hct (34.0-46.0) % MCV (80.0-100.0) fL MCH (25.0-35.0) pg MCHC (31.0-37.0) g/dL RDW (11.5-15.5) % Plt Count (150-450) k/uL MPV Neutrophils % % Lymphocytes % % Monocytes % % Eosinophils % % Basophils % % Neutrophils # (1.3-7.7) k/uL Lymphocytes # (1.0-4.8) k/uL Monocytes # (0-1.0) k/uL Eosinophils # (0-0.7) k/uL Basophils # (0-0.2) k/uL Sodium (137-145) mmol/L Potassium (3.5-5.1) mmol/L Chloride (98-107) mmol/L Carbon Dioxide (22-30) mmol/L Anion Gap mmol/L BUN (7-17) mg/dL Creatinine (0.52-1.04) mg/dL Est GFR (CKD-EPI)AfAm (>60 ml/min/1.73 sqM) Est GFR (CKD-EPI)NonAf (>60 ml/min/1.73 sqM) Glucose (74-99) mg/dL Plasma Lactic Acid Paco 1.1 (0.7-2.0) mmol/L Calcium (8.4-10.2) mg/dL Total Bilirubin (0.2-1.3) mg/dL AST (14-36) U/L ALT (4-34) U/L Alkaline Phosphatase (38-126) U/L Total Protein (6.3-8.2) g/dL Albumin (3.5-5.0) g/dL Urine Color Urine Appearance (Clear) Urine pH (5.0-8.0) Ur Specific [place] (1.001-1.035) Urine Protein (Negative) Urine Glucose (UA) (Negative) Urine Ketones (Negative) Urine Blood (Negative) Urine Nitrite (Negative) Urine Bilirubin (Negative) Urine Urobilinogen (<2.0) mg/dL Ur Leukocyte Esterase (Negative) Urine RBC (0-5) /hpf Urine WBC (0-5) /hpf Urine Bacteria (None) /hpf Urine Mucus (None) /hpf Blood Type A Positive Blood Type Recheck A Pos Bld Type Recheck Status No Antibody Screen NEGATIVE Spec Expiration Date 01/07/20232304 - Radiology Data Radiology results: report reviewed, image reviewed Disposition Clinical Impression: Vaginal bleeding Disposition: HOME SELF-CARE Additional Instructions: Return to the emergency department with any new, worsening, or concerning symptoms. Contact Dr. Núñez's office as listed below first thing in the morning for a follow-up appointment. Is patient prescribed a controlled substance at d/c from ED?: No Referrals: Austin Cardenas DO [Primary Care Provider] - 1-2 days Yady Núñez MD [STAFF PHYSICIAN] - 1-2 days
[2023-01-04 22:34] LABS: Basophils # (A) 0.1 k/uL (0-0.2); Basophils % (A) 1 %; Eosinophils # (A) 0.2 k/uL (0-0.7); Eosinophils % (A) 3 %; HCT 36.5 % (34.0-46.0); HGB 12.3 gm/dL (11.4-16.0); Lymphocytes # (A) 2.1 k/uL (1.0-4.8); Lymphocytes % (A) 29 %; MCH 32.2 pg (25.0-35.0); MCHC 33.6 g/dL (31.0-37.0); MCV 95.8 fL (80.0-100.0); Mean Platelet Volume 7.6; Monocytes # (A) 0.3 k/uL (0-1.0); Monocytes % (A) 4 %; Neutrophils # (A) 4.3 k/uL (1.3-7.7); Neutrophils % (A) 60 %; Platelet Count 380 k/uL (150-450); RBC 3.82 m/uL (3.80-5.40); RDW 12.5 % (11.5-15.5); WBC 7.2 k/uL (3.8-10.6)
[2023-01-04 22:41] LABS: Appearance,Urine Clear (Clear); Bacteria,Urine Rare /hpf; Bilirubin,Urine Negative (Negative); Blood,Urine Large (Negative); Color,Urine Light Red; Glucose,Urine (UA) Negative (Negative); Ketones,Urine Negative (Negative); Leukocyte Esterase,Urine Trace (Negative); Mucus,Urine Rare /hpf; Nitrite,Urine Negative (Negative); Protein,Urine 2+ (Negative); RBC,Urine 49 /hpf (0-5); Specific Gravity,Urine 1.003 (1.001-1.035); Urobilinogen,Urine <2.0 mg/dL (<2.0); WBC,Urine 3 /hpf (0-5)
[2023-01-04 22:53] LABS: ALT 23 U/L (4-34); AST 28 U/L (14-36); African American GFR (CKD) >90 (>60 ml/min/1.73 sqM); Alkaline Phosphatase 77 U/L (38-126); Anion Gap 11 mmol/L; Blood Urea Nitrogen 13 mg/dL (7-17); Carbon Dioxide 28 mmol/L (22-30); Chloride 101 mmol/L (98-107); Glucose 101 mg/dL (74-99); Non-African American GFR(CKD) >90 (>60 ml/min/1.73 sqM); Potassium 3.8 mmol/L (3.5-5.1); Sodium 140 mmol/L (137-145); Total Bilirubin 0.4 mg/dL (0.2-1.3)
--- NOTE | 2023-01-04 23:33 | CT ---
EXAM: CT Abdomen and Pelvis With Intravenous Contrast CLINICAL HISTORY: Vaginal bleeding and pelvic pain TECHNIQUE: Axial computed tomography images of the abdomen and pelvis with intravenous contrast. CTDI is 21.3 mGy and DLP is 1010.4 mGy-cm. This CT exam was performed using one or more of the following dose reduction techniques: automated exposure control, adjustment of the mA and/or kV according to patient size, and/or use of iterative reconstruction technique. COMPARISON: No relevant prior studies available. FINDINGS: Lung bases: Unremarkable. No mass. No consolidation. ABDOMEN: Liver: Unremarkable. No mass. Gallbladder and bile ducts: Gallbladder is not identified. No ductal dilation. Pancreas: Unremarkable. No mass. No ductal dilation. Spleen: Unremarkable. No splenomegaly. Adrenals: Unremarkable. No mass. Kidneys and ureters: Unremarkable. No solid mass. No hydronephrosis. Stomach and bowel: No obstruction or ileus. No evidence for diverticulitis. PELVIS: Appendix: No findings to suggest acute appendicitis. Bladder: Unremarkable. No mass. Reproductive: Status post partial hysterectomy with grossly unremarkable cervix and lower uterine segment. No surrounding infiltration or collection. Ovaries not distinctly visualized. ABDOMEN and PELVIS: Intraperitoneal space: No free air. No free fluid. Bones/joints: No acute fracture. Degenerative changes of the spine. Soft tissues: Unremarkable. Vasculature: Unremarkable. No abdominal aortic aneurysm. Lymph nodes: Unremarkable. No enlarged lymph nodes. IMPRESSION: Status post partial hysterectomy. No identifiable postoperative collection or fluid.
[2023-01-04 23:45] VITALS: BP 152/92; RESP 18
== END 2023-01-05 00:27 | disposition home or self-care (01) ==
LOC: EC 21:37
DX: N93.9 Abnormal uterine and vaginal bleeding, unspecified (principal); K21.9 Gastro-esophageal reflux disease without esophagitis; E78.5 Hyperlipidemia, unspecified; Z79.899 Other long term (current) drug therapy; Z88.6 Allergy status to analgesic agent; Z88.2 Allergy status to sulfonamides; Z88.0 Allergy status to penicillin; Z91.011 Allergy to milk products
CPT/HCPCS: 36415; 86900; 86901; 80053; 83605; 85025; 86850; 81001; 74177; 99284; Q9967

== ENCOUNTER → 2023-06-04 | Outpatient (CLI) | payer BC ==
--- NOTE | 2023-06-05 11:36 | MM ---
Reason for Exam: Screening (asymptomatic). Last mammogram was performed 1 year(s) and 2 month(s) ago. Patient History: Menarche at age 15. First Full-Term at age 21. Postmenopausal. Patient has history of breast feeding. Hormonal Contraceptives for 9 months. 02/01/2019, Benign Cyst Aspiration on the right side. 02/01/2019, Benign Core Biopsy on the right side. Risk Values: Marivel 5 year model risk: 1.3%. NCI Lifetime model risk: 7.4%. Prior Study Comparison: 03/20/2020 Bilateral Diagnostic Mammogram, [facility]. 04/17/2021 Bilateral Diagnostic Mammogram, [facility]. 04/21/2022 Bilateral MG 3D screening mammo w/cad, [facility]. Tissue Density: The breast tissue is heterogeneously dense. This may lower the sensitivity of mammography. Findings: Analyzed By CAD. There is no suspicious group of microcalcifications or new suspicious mass in either breast. Overall Assessment: Benign, BI-RAD 2 Management: Screening Mammogram of both breasts in 1 year. . Patient should continue monthly self-breast exams. A clinical breast exam by your physician is recommended on an annual basis. This exam should not preclude additional follow-up of suspicious palpable abnormalities. Note on Marivel scores and lifetime risk: 1. A Marivel score greater than 3% is considered moderate risk. If this is the case, consider specialist referral to assess eligibility for a risk reducing agent. 2. If overall lifetime risk for the development of breast cancer is 20% or higher, the patient may qualify for future screening with alternating mammogram and breast MRI. Electronically signed and approved by: Timmy Abad M.D. Radiologis
== END | disposition home or self-care (01) ==
LOC: RADMAMWWP 15:00
PROVIDERS: ATTEND Surgery
DX: Z12.31 Encounter for screening mammogram for malignant neoplasm of breast (principal); Z78.0 Asymptomatic menopausal state
CPT/HCPCS: 77063; 77067

== ENCOUNTER → 2023-06-11 | Outpatient (CLI) | payer MEDICARE ==
--- NOTE | 2023-06-11 12:17 | P.PN ---
Subjective Progress Note Date: 06/11/23 prior breast abcess right Winn is a 57 year old white female with a right breast abscess treated with clindamycin. She subsequently underwent a cervical disc surgery and was treated with Cosentyx. She was going to change to TALTZ which is a bilogical injection, however this was not obtained secondary to insurance. She had a right breast core biopsy on 02-01-19 which revealed fibrocystic changes including inflamed cyst wall with cyst contents. She underwent on June 20, 2021 right knee surgery replacement. The following day she experienced 2 weeks worth of sharp pain in her right breast. On 08/15/2021 her left knee placement surgery was performed. She then experienced repeat right breast pain which lasted for 2 weeks and has now resolved. She underwent a bilateral mammogram on 06-04-23 this was benign BIRADS 2. She is not complaining of any pain, masses, lumps or nodules in her breast. She does notice some fullness in the right axillary area. She has been diagnosed with 2 syrinxs in her back and is using a walking stick. She had her right knee aspirated approximately 1 week ago by her orthopedic doctor office. Weeks ago she developed 2 abscesses in her mouth, this was done following a dental procedure. She is presently following with a dentist. Caffeine: 2 cups of coffee per day Nicotine: Negative Chocolate: Occasional Hormones: Negative Family History: 1. paternal 7 siblings at 53 with stomach cancer 2. father: ulcer disease, dementia, Parkinson's disease 3. sister: multiple sclerosis Hormonal History: menarche: 15 , 1 miscarrage menopause: 44 BCP: 9 years hormones: none, sister had a stroke Past surgical history: 1. Tonsillectomy 2. Manipulation right shoulder 2. Cholecystectomy 4. Eli which reversed on its own 5. Bilateral knee surgery with no 6. Reconstruction of left ankle 7. cervical laminectomy 8. bilateral knee replacement 7. partial hysterectomy and a cystocele repair Past medical history: 1. Ankylosing spondylitis 2. Polyarticular arthritis 3. Fibromyalgia 4. Psoriatic arthritis she follows with reliability specialist 5. Recently diagnosed celiac disease 6. Cervical disc disease for which she is recommended to have cervical surgery 7. ulnar neuropathy in both arms Social History: smoke: none alcohol: wine every night drugs: has a marijuana card ROS: HEENT: Cervical syrnix, related to disc disease lungs: none heart: none GI: possible celiac disease : postmenopausal psych: negative Musculoskeletal: Ankylosing spondylitis, psoriatic arthritis, syrnix Endocrine: on synthroid, hypothyroid Hematologic: Negative Objective - Constitutional General appearance: Present: cooperative - EENT Eyes: Present: EOMI ENT: Present: hearing grossly normal - Neck Neck: Present: normal ROM - Respiratory Respiratory: bilateral: CTA - Cardiovascular Heart sounds: normal: S1, S2 - Integumentary Integumentary: Present: normal turgor - Musculoskeletal Musculoskeletal: Present: gait normal - Psychiatric Psychiatric: Present: A&O x's 3, appropriate affect, intact judgment & insight - Additional findings Additional findings: Breast Exam: BRA: 38B Inspection: grade 2 ptosis Palpation: right breast: multi-positional exam fibrocystic changes no dominant masses or nodules of concern Right axilla: No adenopathy of concern Left breast: Multi-positional exam fibrocystic changes no dominant masses or nodules of concern Left axilla: No adenopathy of concern Assessment and Plan Assessment: Impression: Fibrocystic breast changes, prior abscess right breast no evidence of abscess at this time bilateral mammogram 06-04-23 BIRAD 2 Plan: Bilateral mammogram 1 year with physician exam at that time CC: Dr. Cardenas
[2023-06-11 13:01] VITALS: BP 123/83; PULSE 70; RESP 17; TEMP 98.3
== END ==
LOC: WWCWWP 11:56
PROVIDERS: ATTEND Surgery
DX: N60.11 Diffuse cystic mastopathy of right breast (principal); K90.0 Celiac disease; M45.9 Ankylosing spondylitis of unspecified sites in spine; M79.7 Fibromyalgia; L40.50 Arthropathic psoriasis, unspecified; Z96.653 Presence of artificial knee joint, bilateral; Z88.6 Allergy status to analgesic agent; Z88.0 Allergy status to penicillin; Z88.2 Allergy status to sulfonamides; Z91.011 Allergy to milk products

== ENCOUNTER → 2023-07-29 | Outpatient (CLI) | payer MEDICARE ==
[2023-07-29 15:11] LABS: Prothrombin Time 10.6 sec (10.0-12.5)
[2023-07-29 19:48] LABS: ALT 15 U/L (8-44); AST 21 U/L (13-35); Albumin 4.8 g/dL (3.8-4.9); Albumin/Globulin Ratio 1.85 Ratio (1.60-3.17); Alkaline Phosphatase 80 U/L (41-126); BUN/Creat Ratio 15.29 Ratio (12.00-20.00); Blood Urea Nitrogen 10.7 mg/dL (9.0-27.0); Calcium 9.7 mg/dL (8.7-10.3); Carbon Dioxide 28.9 mmol/L (21.6-31.8); Chloride 99 mmol/L (96-109); Globulin 2.6 g/dL (1.6-3.3); Glucose 109 mg/dL (70-110); Sodium 140 mmol/L (135-145); Total Bilirubin 0.5 mg/dL (0.3-1.2); Total Protein 7.4 g/dL (6.2-8.2)
[2023-07-29 21:04] LABS: Basophils # (A) 0.08 X 10*3/uL (0.00-0.10); Basophils % (A) 1.5 %; Eosinophils # (A) 0.08 X 10*3/uL (0.04-0.35); Eosinophils % (A) 1.5 %; HGB 12.6 g/dL (12.0-15.0); Lymphocytes # (A) 1.55 X 10*3/uL (0.90-5.00); Lymphocytes % (A) 28.2 %; MCH 34.7 pg (27.0-32.0); MCV 99.2 FL (80.0-97.0); Mean Platelet Volume 10.6 FL (9.5-12.2); Monocytes # (A) 0.37 X 10*3/uL (0.20-1.00); Monocytes % (A) 6.7 %; NRBC Per 100 WBC 0 X 10*3/uL (0.00-0.01); Neutrophils % (A) 61.7 %; Platelet Count 376 X 10*3/uL (140-440); RBC 3.63 X 10*6/uL (4.10-5.20); RDW 12.2 % (11.5-14.5)
== END | disposition home or self-care (01) ==
LOC: LABWHC1 13:26
PROVIDERS: ATTEND Orthopaedic Surgery Adult Reconstructive Orthopaedic Surgery
DX: Z01.89 Encounter for other specified special examinations (principal); Z13.1 Encounter for screening for diabetes mellitus
CPT/HCPCS: 36415; 80053; 83036; 85025; 85610; 85730; 87070

== ENCOUNTER → 2023-08-29 | Outpatient (CLI) | payer MEDICARE ==
[2023-08-29 23:35] LABS: BUN/Creat Ratio 15.86 Ratio (12.00-20.00); Blood Urea Nitrogen 11.1 mg/dL (9.0-27.0); Glucose 96 mg/dL (70-110)
[2023-08-29 23:36] LABS: ALT 15 U/L (8-44); AST 20 U/L (13-35); Albumin 4.3 g/dL (3.8-4.9); Albumin/Globulin Ratio 1.72 Ratio (1.60-3.17); Alkaline Phosphatase 87 U/L (41-126); Calcium 9.5 mg/dL (8.7-10.3); Carbon Dioxide 26.7 mmol/L (21.6-31.8); Chloride 100 mmol/L (96-109); Globulin 2.5 g/dL (1.6-3.3); Potassium 4.1 mmol/L (3.5-5.5); Sodium 138 mmol/L (135-145); T4, Free (Free Thyroxine) 1.58 ng/dL (0.80-1.80); Total Bilirubin 0.5 mg/dL (0.3-1.2); Total Protein 6.8 g/dL (6.2-8.2)
== END | disposition home or self-care (01) ==
LOC: LABWHC1 10:19
PROVIDERS: ATTEND Internal Medicine
DX: E34.9 Endocrine disorder, unspecified (principal); E03.9 Hypothyroidism, unspecified; E55.9 Vitamin D deficiency, unspecified
CPT/HCPCS: 36415; 80053; 82306; 83970; 84439; 84443

== ENCOUNTER → 2023-09-04 | Outpatient (CLI) | payer MEDICARE ==
--- NOTE | 2023-09-05 14:41 | BD ---
EXAMINATION TYPE: Axial Bone Density DATE OF EXAM: 09/04/2023 CLINICAL HISTORY: 57 years old Female. ICD-10 CODE: M81.0 AGE-RELATED OSTEOPOROSIS W/O CURRENT PATHO LO Height: 63" Weight: 173.1lbs FRAX RISK QUESTIONS: Alcohol (3 or more units per day): No Family History (Parent hip fracture): No Glucocorticoids (More than 3mos): No (Ex: prednisone, prednisolone, methylprednisolone, dexamethasone, and hydrocortisone). History of Fracture in Adulthood: Yes, fingers & toes Secondary Osteoporosis: 1. Type 1 Diabetes: No 2. Hyperthyroidism: No 3. Menopause before 45: Yes 4. Malnutrition: No 5. Chronic liver disease: No Rheumatoid Arthritis: No Current Tobacco Use: No RISK FACTORS HISTORY OF: Hip Fracture (Right/Left): No Spine Fracture: No History of Wrist Fracture: No Surgery to Spine/Hip(right/left)/Wrist (right/left): No Family History of Osteoporosis: Yes, Mother Active: Yes Diet low in dairy products/other sources of calcium: Yes Postmenopausal woman: Yes Lost more than 2 inches in height since high school: No Frequent falls: No Poor Health: No Hyperparathyroidism: No Adrenal Insufficiency: No MEDICATIONS: Prednisone or other steroids: No Thyroid Medications: Yes Which medication: Synthroid How Lon+ years Osteoporosis Medications: Yes Which medication: Cocentrix How Long: About one year, patient has not taken in a few months Additional Medications: Vitamin D, Calcium, Cocentrix Additional History: Ankylosis spondylitis, psoriatic arthritis EXAM MEASUREMENTS: Bone mineral densitometry was performed using the [place] System. Bone mineral density as measured about the Lumbar spine is: ----- L1-L4(G/cm2): 0.880 T Score Values are as follows: ----- L1: -3.1 ----- L2: -2.8 ----- L3: -2.3 ----- L4: -2.1 ----- L1-L4: -2.5 Z Score Values are as follows: ----- L1: -2.5 ----- L2: -2.2 ----- L3: -1.7 ----- L4: -1.5 ----- L1-L4: -1.9 Bone mineral density has: increased +8.2% since study of: 07/30/2021 Bone mineral density about the R hip (g/cm2): 0.909 Bone mineral density about the L hip (g/cm2): 0.885 T Score values are as follows: -----R Neck: -1.1 -----L Neck: -1.4 -----R Total: -0.8 -----L Total: -1.0 Z Score values are as follows: -----R Neck: -0.2 -----L Neck: -0.6 -----R Total: -0.3 -----L Total: -0.4 Bone mineral density has: increased +10.9% since study of: 07/30/2021 FRAX%s: The graph provided illustrates a 12.7% chance for a major osteoporotic fx and a 1.0% chance f or the hips probability for fx in 10 years time. IMPRESSION: Osteopenia (T Score between -2.5 and -1). There is slightly increased risk of fracture and the patient may be considered for treatment. Re-Screen 2-5 years. NOTE: T-SCORE=SD OF THE YOUNG ADULT MEAN.
== END | disposition home or self-care (01) ==
LOC: RADBDWWP 07:17
PROVIDERS: ATTEND Internal Medicine Rheumatology
DX: M81.0 Age-related osteoporosis without current pathological fracture (principal); M85.89 Other specified disorders of bone density and structure, multiple sites; Z78.0 Asymptomatic menopausal state
CPT/HCPCS: 77080

== ENCOUNTER → 2024-06-21 | Outpatient (CLI) | payer MEDICARE ==
--- NOTE | 2024-06-22 11:12 | MM ---
Reason for Exam: Screening (asymptomatic). Last screening mammogram was performed 12 month(s) ago. Patient History: Menarche at age 15. First Full-Term at age 21. Postmenopausal. Patient has history of breast feeding. Hormonal Contraceptives for 9 months. 02/01/2019, Benign Cyst Aspiration on the right side. 02/01/2019, Benign Core Biopsy on the right side. Risk Values: Marivel 5 year model risk: 1.3%. NCI Lifetime model risk: 7.2%. Prior Study Comparison: 04/17/2021 Bilateral Diagnostic Mammogram, [facility]. 04/21/2022 Bilateral MG 3D screening mammo w/cad, [facility]. 06/04/2023 Bilateral MG 3D screening mammo w/cad, [facility]. Tissue Density: There are scattered areas of fibroglandular density. Findings: Analyzed By CAD. Right breast biopsy clip. Right breast: There is no suspicious group of microcalcifications or new suspicious mass. Left breast: There is no suspicious group of microcalcifications or new suspicious mass. Benign-appearing calcifications left breast. Overall Assessment: Benign, BI-RAD 2 Management: Screening Mammogram of both breasts in [address] [facility] will attempt to contact patient to return for supplemental views and ultrasound if indicated. Patient should continue monthly self-breast exams. A clinical breast exam by your physician is recommended on an annual basis. This exam should not preclude additional follow-up of suspicious palpable abnormalities. Note on Marivel scores and lifetime risk: 1. A Marivel score greater than 3% is considered moderate risk. If this is the case, consider specialist referral to assess eligibility for a risk reducing agent. 2. If overall lifetime risk for the development of breast cancer is 20% or higher, the patient may qualify for future screening with alternating mammogram and breast MRI. [facility], , 06/22/2024 11:10 AM. Electronically signed and approved by: Nestor Wilson DO
== END | disposition home or self-care (01) ==
LOC: RADMAMWWP 11:26
PROVIDERS: ATTEND Family Medicine
CPT/HCPCS: 77063; 77067

== ENCOUNTER → 2024-11-08 | Outpatient (CLI) | payer MEDICARE ==
--- NOTE | 2024-11-08 09:17 | CT ---
EXAMINATION TYPE: CT cervical spine wo con DATE OF EXAM: 11/08/2024 9:12 AM COMPARISON: None. CLINICAL INDICATION: Female, 59 years old with history of G95.0 SYRINGOMYELIA AND SYRINGOBULBIA; NEC K PAIN TECHNIQUE: Axial CT images from the skull base to the inferior aspect of T2 we obtained without intra venous contrast. Coronal and sagittal reformatted images were also reviewed. Contrast used: mL of , (if blank None) Oral contrast used: (if blank None) CT DLP: 304.6 mGycm, Automated exposure control for dose reduction was used. FINDINGS: Fracture: None. Osseous structures: Post fusion changes of C4-C7 there is osseous fusion at C4-C5 C5-C6. Incomplete o sseous fusion at C6-C7. Mild degeneration changes throughout the spine with osteophyte formation and facet joint arthropathy. No evidence of fracture identified. Vertebral alignment: Alignment within normal limits. Spinal canal/Neural Foramina: No evidence of significant spinal canal narrowing. No evidence for sign ificant neural foraminal stenosis. Neck soft tissues: Prevertebral soft tissues are within normal limits. Other: The airway is patent. The lung apices are clear. IMPRESSION: 1. No evidence of cervical spine fracture. 2. Post fusion changes of C4-C7 there is osseous fusion at C4-C5 C5-C6. Incomplete osseous fusion at C6-C7. Hardware appears intact. 3. Mild multilevel degenerative disc disease. [facility], , 11/08/2024 9:15 AM
== END | disposition home or self-care (01) ==
LOC: RADCTMAIN 08:58
PROVIDERS: ATTEND Neurological Surgery
DX: G95.0 Syringomyelia and syringobulbia (principal); M50.30 Other cervical disc degeneration, unspecified cervical region; Z98.1 Arthrodesis status
CPT/HCPCS: 72125

== ENCOUNTER → 2024-11-10 | Outpatient (CLI) | payer MEDICARE ==
[2024-11-10 13:29] VITALS: BP 129/73; PULSE 79; RESP 16; TEMP 98.1
--- NOTE | 2024-11-10 13:41 | P.PN ---
Subjective Progress Note Date: 11/10/24 Principal diagnosis: fibrocytic breast disease 11-10-24 prior breast abcess right Winn is a 59 year old white female with a right breast abscess treated with clindamycin. She subsequently underwent a cervical disc surgery and was treated with Cosentyx. She was going to change to TALTZ which is a bilogical injection, however this was not obtained secondary to insurance. She had a right breast core biopsy on 02-01-19 which revealed fibrocystic changes including inflamed cyst wall with cyst contents. She underwent on June 20, 2021 right knee surgery replacement. The following day she experienced 2 weeks worth of sharp pain in her right breast. On 08/15/2021 her left knee placement surgery was performed. She then experienced repeat right breast pain which lasted for 2 weeks and has now resolved. She underwent a bilateral mammogram on 06-21-24 this was benign BIRADS 2. She is not complaining of any pain, masses, lumps or nodules in her breast. She does notice some fullness in the right axillary area. She has been diagnosed with 2 syrinxs in her back and is using a walking stick, she is following with neurosurgery Caffeine: 2 cups of coffee per day Nicotine: Negative Chocolate: Occasional Hormones: Negative Family History: 1. paternal 7 siblings at 53 with stomach cancer 2. father: ulcer disease, dementia, Parkinson's disease 3. sister: multiple sclerosis Hormonal History: menarche: 15 , 1 misc[place]age menopause: 44 BCP: 9 years hormones: none, sister had a stroke Past surgical history: 1. Tonsillectomy 2. Manipulation right shoulder 2. Cholecystectomy 4. Eli which reversed on its own 5. Bilateral knee surgery with no 6. Reconstruction of left ankle 7. cervical laminectomy 8. bilateral knee replacement 7. partial hysterectomy and a cystocele repair Past medical history: 1. Ankylosing spondylitis 2. Polyarticular arthritis 3. Fibromyalgia 4. 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 Recently diagnosed celiac disease 6. Cervical disc disease for which she is recommended to have cervical surgery 7. ulnar neuropathy in both arms Social History: smoke: none alcohol: wine every night drugs: has a marijuana card ROS: HEENT: Cervical syrnix, related to disc disease lungs: none heart: none GI: possible celiac disease : postmenopausal psych: negative Musculoskeletal: Ankylosing spondylitis, psoriatic arthritis, syrnix Endocrine: on synthroid, hypothyroid Hematologic: Negative Objective - Vital Signs Vital signs: Vital Signs Temp 98.1 F 11/10/24 13:27 Pulse 79 11/10/24 13:27 Resp 16 11/10/24 13:27 BP 129/73 11/10/24 13:27 Pulse Ox 98 11/10/24 13:27 FiO2 Intake & Output 11/09/24 11/10/24 11/10/24 18:59 06:59 18:59 Weight 69.4 kg - Constitutional General appearance: Present: cooperative - EENT Eyes: Present: EOMI ENT: Present: hearing grossly normal - Neck Neck: Present: normal ROM - Respiratory Respiratory: bilateral: CTA - Cardiovascular Rhythm: regular Heart sounds: normal: S1, S2 - Integumentary Integumentary: Present: normal turgor - Musculoskeletal Musculoskeletal: Present: gait normal - Psychiatric Psychiatric: Present: A&O x's 3, appropriate affect, intact judgment & insight - Additional findings Additional findings: Breast Exam: BRA: 38B Inspection: grade 2 ptosis Palpation: right breast: multi-positional exam fibrocystic changes no dominant masses or nodules of concern Right axilla: No adenopathy of concern Left breast: Multi-positional exam fibrocystic changes no dominant masses or nodules of concern Left axilla: No adenopathy of concern Assessment and Plan Assessment: Impression: Fibrocystic breast changes, prior abscess right breast no evidence of abscess at this time bilateral mammogram 06-21-24 BIRAD 2 Plan: Bilateral mammogram 1 year with physician exam at that time follow up sooner if any concerns CC: Dr. Cardenas
== END ==
LOC: WWCWWP 13:18
PROVIDERS: ATTEND Surgery
DX: N60.19 Diffuse cystic mastopathy of unspecified breast (principal); Z90.11 Acquired absence of right breast and nipple; F12.90 Cannabis use, unspecified, uncomplicated; Z88.0 Allergy status to penicillin; Z88.6 Allergy status to analgesic agent; Z88.2 Allergy status to sulfonamides; Z91.011 Allergy to milk products

== ENCOUNTER → 2024-11-29 | Outpatient (CLI) | payer MEDICARE ==
[2024-11-29 15:39] LABS: BUN/Creat Ratio 19.14 Ratio (12.00-20.00); Blood Urea Nitrogen 13.4 mg/dL (9.0-27.0); C Reactive Protein <0.30 mg/dL (0.00-0.80); Calcium 9.2 mg/dL (8.7-10.3); Carbon Dioxide 28.8 mmol/L (21.6-31.8); Chloride 99 mmol/L (96-109); Glucose 93 mg/dL (70-110); Potassium 4.2 mmol/L (3.5-5.5); Sodium 137 mmol/L (135-145)
== END | disposition home or self-care (01) ==
LOC: LABWHC1 10:23
PROVIDERS: ATTEND Nurse Practitioner Family
DX: E03.9 Hypothyroidism, unspecified (principal); N28.9 Disorder of kidney and ureter, unspecified; L40.50 Arthropathic psoriasis, unspecified; R82.994 Hypercalciuria
CPT/HCPCS: 36415; 80048; 83970; 84439; 84443; 85652; 86140; 86480

== ENCOUNTER 2025-02-12 11:00 | Emergency (ER) | payer MEDICARE ==
[2025-02-12 11:14] VITALS: RESP 18
--- NOTE | 2025-02-12 12:59 | ED ---
Nausea/Vomiting/Diarrhea HPI - General Chief complaint: Nausea/Vomiting/Diarrhea Stated complaint: Diarrhea,SOB Time Seen by Provider: 02/12/25 12:56 Source: patient, RN notes reviewed Mode of arrival: ambulatory - History of Present Illness Initial comments: 59-year-old female presenting for diarrhea x 9 days. Reports sudden onset diarrhea with severe abdominal cramping, chills, nausea, and fatigue. States abdominal cramping and chills have improved however patient continues to have approximately 4 episodes of diarrhea per day. She is tolerating orals well. Denies nausea or vomiting. Denies sick contacts. States prior to symptom onset she did take 2 clindamycin pills for her tooth. Denies recent travel or exposure to livestock. States she went to [facility] who told her that her stool sample was inconclusive and sent her to the ER for further evalua tion. - Related Data Home Medications Medication Instructions Recorded Confirmed Multivit with Calcium,Iron,Min 1 tab PO DAILY 02/06/16 11/10/24 [Women's Daily Multivitamin] Amitriptyline HCl 40 mg PO HS 11/26/18 11/10/24 Calcium Carbonate [Calcium] 1,500 mg PO DAILY 11/26/18 11/10/24 Cyanocobalamin (Vitamin B-12) 1,000 mcg PO DAILY 11/26/18 11/10/24 [Vitamin B-12] Lysine [l-Lysine] 500 mg PO DAILY 11/26/18 11/10/24 Omeprazole 40 mg PO DAILY 01/19/19 11/10/24 Levothyroxine Sodium [Synthroid] 100 mcg PO DAILY 02/01/19 11/10/24 Acetaminophen Tab [Tylenol Tab] 650 mg PO Q6H PRN 02/16/19 11/10/24 Ibuprofen [Motrin] 800 mg PO TID PRN 02/16/19 11/10/24 Baclofen 10 mg PO HS 09/08/19 11/10/24 Fluticasone Nasal [place] [Flonase 1 spray EA NOSTRIL DAILY PRN 09/08/19 11/10/24 Nasal [place]] Alendronate Sodium [Fosamax] 70 mg PO WHITMAN 05/15/22 11/10/24 Atorvastatin [Lipitor] 10 mg PO HS 05/15/22 11/10/24 Furosemide [Lasix] 20 mg PO DAILY 05/15/22 11/10/24 Gabapentin [Neurontin] 100 mg PO DAILY 12/16/22 11/10/24 Gabapentin [Neurontin] 400 mg PO HS 12/16/22 11/10/24 Secukinumab [Cosentyx Pen (2 Pens)] 150 mg SQ Q30D 12/16/22 11/10/24 Previous Rx's Medication Instructions Recorded Azithromycin [Zithromax Z Pack] 0 tab PO DIRECTED #6 tab 05/02/23 Azithromycin [Zithromax] 500 mg PO DAILY #5 tab 02/12/25 Dicyclomine [Bentyl] 20 mg PO TID #30 tablet 02/12/25 Allergies Allergy/AdvReac Type Severity Reaction Status Date / Time aspirin Allergy Rash/Hives Verified 02/12/25 11:15 Penicillins Allergy Rash/Hives Verified 02/12/25 11:15 Sulfa (Sulfonamide Allergy Rash/Hives Verified 02/12/25 11:15 Antibiotics) lactose AdvReac Severe GI problems Verified 02/12/25 11:15 Review of Systems ROS Statement: Those systems with pertinent positive or pertinent negative responses have been documented in the HPI. ROS Other: All systems not noted in ROS Statement are negative. Past Medical History Past Medical History: Fibromyalgia, GERD/Reflux, Hyperlipidemia Additional Past Medical History / Comment(s): Hx migraines, palpitations, varicose veins, hx ulcer, hiatal hernia, frequent diarrhea, ankylosing spondylitis, seeing Dr. Caro this afternoon regarding an infection on her R breast. History of Any Multi-Drug Resistant Organisms: None Reported Past Surgical History: Hysterectomy, Orthopedic Surgery, Tonsillectomy Additional Past Surgical History / Comment(s): Eli fundoplication, reconstruction left ankle, manipulation rt shoulder, prior colonoscopy & Endoscopy. Past Anesthesia/Blood Transfusion Reactions: Motion Sickness, Postoperative Nausea & Vomiting (PONV) Past Psychological History: No Psychological Hx Reported Smoking Status: Never smoker Past Alcohol Use History: Occasional Past Drug Use History: None Reported - Past Family History Father Family Medical History: Deep Vein Thrombosis (DVT) Mother Family Medical History: COPD General Exam General appearance: alert, in no apparent distress Head exam: Present: atraumatic, normocephalic, normal inspection GI/Abdominal exam: Present: soft, normal bowel sounds. Absent: distended, tenderness, guarding, rebound, rigid Back exam: Absent: CVA tenderness (R), CVA tenderness (L) Neurological exam: Present: alert, oriented X3 Psychiatric exam: Present: normal affect, normal mood Skin exam: Present: warm, dry, intact, normal color. Absent: rash Course Vital Signs 02/12/25 11:11 Temperature 98.1 F Pulse Rate 90 Respiratory 18 Rate Blood Pressure 106/68 O2 Sat by Pulse 99 Oximetry Medical Decision Making - Medical Decision Making Was pt. sent in by a medical professional or institution (, PA, SAMPLE EXAMINER, urgent care, hospital, or [facility]...) When possible be specific @ -No Did you speak to anyone other than the patient for history (EMS, parent, family, police, friend...)? What history was obtained from this source @ -No Did you review nursing and triage notes (agree or disagree)? Why? @ -I reviewed and agree with nursing and triage notes Were old charts reviewed (outside hosp., previous admission, EMS record, old EKG, old radiological studies, urgent care reports/EKG's, [facility] records)? Report findings @ -No old charts were reviewed Differential Diagnosis (chest pain, altered mental status, abdominal pain women, abdominal pain men, vaginal bleeding, weakness, fever, dyspnea, syncope, headache, dizziness, GI bleed, back pain, seizure, CVA, palpatations, mental health, musculoskeletal)? @ -Differential Abdominal Pain Women: Gastroenteritis, infectious diarrhea, C. difficile, cholecystitis, diverticulosi s, ischemic bowel, pancreatitis, hepatitis, UTI, incarcerated hernia, bowel obstruction, constipation, inflammatory bowel, hepatitis, peptic ulcer disease, this is not meant to be an all-inclusive list EKG interpreted by me (3pts min.). @ -None X-rays interpreted by me (1pt min.). @ -None done CT interpreted by me (1pt min.). @ -CT abdomen pelvis reveals severe pancolonic wall thickening with adjacent mesenteric inflammatory changes suggesting infectious or inflammatory colitis U/S interpreted by me (1pt. min.). @ -None done What testing was considered but not performed or refused? (CT, X-rays, U/S, labs)? Why? @ -None What meds were considered but not given or refused? Why? @ -None Did you discuss the management of the patient with other professionals (professionals i.e. , PA, SAMPLE EXAMINER, lab, RT, psych nurse, manager social services, spot facer, teacher, grant officer, casework specialist)? Give summary @ -No Was smoking cessation discussed for >3mins.? @ -No Was critical care preformed (if so, how long)? @ -No Were there social determinants of health that impacted care today? How? (Homelessness, low income, unemployed, alcoholism, drug addiction, transportation, low edu. Level, literacy, decrease access to med. care, [facility], rehab)? @ -No Was there de-escalation of care discussed even if they declined (Discuss DNR or withdrawal of care, Hospice)? DNR status @ -No What co-morbidities impacted this encounter? (DM, HTN, Smoking, COPD, CAD, Cancer, CVA, ARF, Chemo, Hep., AIDS, mental health diagnosis, sleep apnea, morbid obesity)? @ -None Was patient admitted / discharged? Hospital course, mention meds given and route, prescriptions, significant lab abnormalities, going to OR and other pertinent info. @ -Discharge. 59-year-old female presenting for diarrhea x 9 days. Denies fevers or abdominal pain. Patient is overall well-appearing. Abdomen soft and nonsurgical. Started on IV fluids. Lab work remarkable for elevated lipase 816. Normal white count of 7. No lactic acidosis. Urinalysis reveals 20 white blood cells, small blood, trace ketones. Given elevated lipase, CT obtained which reveals severe pancolonic wall thickening with adjacent mesenteric inflammatory changes suggesting infectious or inflammatory colitis, no acute disease of the pancreas. C. difficile negative. Results discussed with patient. Given diarrhea has been present for 9 days, we will treat with azithromycin. Advise close follow-up with PCP in 1 to 2 days for reevaluation. Case was discussed with my ED attending Dr. Tee Undiagnosed new problem with uncertain prognosis? @ -No Drug Therapy requiring intensive monitoring for toxicity (Heparin, Nitro, Insulin, Cardizem)? @ -No Were any procedures done? @ -No Diagnosis/symptom? @ -Diarrhea, inflammatory colitis Acute, or Chronic, or Acute on Chronic? @ -Acute Uncomplicated (without systemic symptoms) or Complicated (systemic symptoms)? @ -Uncomplicated Side effects of treatment? @ -No Exacerbation, Progression, or Severe Exacerbation? @ -No Poses a threat to life or bodily function? How? (Chest pain, [place], [place], pneumonia, PE, COPD, DKA, ARF, appy, cholecystitis, CVA, Diverticulitis, Homicidal, Suicidal, threat to staff... and all critical care pts) @ -Not at this time - Lab Data Result diagrams: 02/12/25 13:15 02/12/25 13:15 Lab Results 02/12/25 02/12/25 02/12/25 Range/Units 13:09 13:15 13:15 WBC 7.01 (4.50-10.00) 10*3/uL RBC 4.21 (4.10-5.20) 10*6/uL Hgb 13.8 (12.0-15.0) g/dL Hct 37.7 (37.2-46.3) % MCV 89.5 (80.0-97.0) fL MCH 32.8 H (27.0-32.0) pg MCHC 36.6 (32.0-37.0) g/dL Plt Count 399 (140-440) 10*3/uL MPV 10.2 (9.5-12.2) fL Immature Gran % (Auto) 0.4 % Neutrophils % 63.8 % Lymphocytes % 21.4 % Monocytes % 11.7 % Eosinophils % 1.1 % Basophils % 1.6 % Immature Gran # 0.03 (0.00-0.04) 10*3/uL Neutrophils # 4.47 (1.80-7.70) 10*3/uL Lymphocytes # 1.50 (0.90-5.00) 10*3/uL Monocytes # 0.82 (0.20-1.00) 10*3/uL Eosinophils # 0.08 (0.04-0.35) 10*3/uL Basophils # 0.11 H (0.00-0.10) 10*3/uL Manual Slide Review Performed Sodium (137-145) mmol/L Potassium (3.5-5.1) mmol/L Chloride (98-107) mmol/L Carbon Dioxide (22-30) mmol/L Anion Gap mmol/L BUN (7-17) mg/dL Creatinine (0.52-1.04) mg/dL Est GFR (CKD-EPI)AfAm (>60 ml/min/1.73 sqM) Est GFR (CKD-EPI)NonAf (>60 ml/min/1.73 sqM) Glucose (74-99) mg/dL Plasma Lactic Acid Paco (0.7-2.0) mmol/L Calcium (8.4-10.2) mg/dL Magnesium (1.6-2.3) mg/dL Total Bilirubin (0.2-1.3) mg/dL AST (14-36) U/L ALT (4-34) U/L Alkaline Phosphatase (38-126) U/L Total Protein (6.3-8.2) g/dL Albumin (3.5-5.0) g/dL Lipase (23-300) U/L Urine Color Yellow Urine Appearance Clear (Clear) Urine pH 6.5 (5.0-8.0) Ur Specific [place] 1.028 (1.001-1.035) Urine Protein 1+ H (Negative) Urine Glucose (UA) Negative (Negative) Urine Ketones Trace H (Negative) Urine Blood Small H (Negative) Urine Nitrite Negative (Negative) Urine Bilirubin Negative (Negative) Urine Urobilinogen 2.0 (<2.0) mg/dL Ur Leukocyte Esterase Small H (Negative) Urine RBC 2 (0-5) /hpf Urine WBC 20 H (0-5) /hpf Ur Squamous Epith Cells 2 (0-4) /hpf Urine Mucus Occasional H (None) /hpf C. difficile (EIA) Intrp Negative (Negative) 02/12/25 02/12/25 Range/Units 13:15 13:15 WBC (4.50-10.00) 10*3/uL RBC (4.10-5.20) 10*6/uL Hgb (12.0-15.0) g/dL Hct (37.2-46.3) % MCV (80.0-97.0) fL MCH (27.0-32.0) pg MCHC (32.0-37.0) g/dL Plt Count (140-440) 10*3/uL MPV (9.5-12.2) fL Immature Gran % (Auto) % Neutrophils % % Lymphocytes % % Monocytes % % Eosinophils % % Basophils % % Immature Gran # (0.00-0.04) 10*3/uL Neutrophils # (1.80-7.70) 10*3/uL Lymphocytes # (0.90-5.00) 10*3/uL Monocytes # (0.20-1.00) 10*3/uL Eosinophils # (0.04-0.35) 10*3/uL Basophils # (0.00-0.10) 10*3/uL Manual Slide Review Sodium 133 L (137-145) mmol/L Potassium 3.9 (3.5-5.1) mmol/L Chloride 93 L (98-107) mmol/L Carbon Dioxide 28 (22-30) mmol/L Anion Gap 12 mmol/L BUN 15 (7-17) mg/dL Creatinine 0.76 (0.52-1.04) mg/dL Est GFR (CKD-EPI)AfAm >90 (>60 ml/min/1.73 sqM) Est GFR (CKD-EPI)NonAf 86 (>60 ml/min/1.73 sqM) Glucose 113 H (74-99) mg/dL Plasma Lactic Acid Paco 1.2 (0.7-2.0) mmol/L Calcium 9.3 (8.4-10.2) mg/dL Magnesium 2.2 (1.6-2.3) mg/dL Total Bilirubin 0.6 (0.2-1.3) mg/dL AST 29 (14-36) U/L ALT 21 (4-34) U/L Alkaline Phosphatase 77 (38-126) U/L Total Protein 7.6 (6.3-8.2) g/dL Albumin 4.6 (3.5-5.0) g/dL Lipase 816 H (23-300) U/L Urine Color Urine Appearance (Clear) Urine pH (5.0-8.0) Ur Specific [place] (1.001-1.035) Urine Protein (Negative) Urine Glucose (UA) (Negative) Urine Ketones (Negative) Urine Blood (Negative) Urine Nitrite (Negative) Urine Bilirubin (Negative) Urine Urobilinogen (<2.0) mg/dL Ur Leukocyte Esterase (Negative) Urine RBC (0-5) /hpf Urine WBC (0-5) /hpf Ur Squamous Epith Cells (0-4) /hpf Urine Mucus (None) /hpf C. difficile (EIA) Intrp (Negative) Disposition Clinical Impression: Diarrhea, Colitis Disposition: HOME SELF-CARE Condition: Stable Instructions (If sedation given, give patient instructions): Acute Diarrhea (ED) Additional Instructions: Take azithromycin as prescribed. Take Bentyl as needed for abdominal cramps. Take [id number] probiotics to help promote healthy bacteria in your gut. Please return to the Emergency Department if symptoms worsen or any other concerns. Prescriptions: Dicyclomine [Bentyl] 20 mg PO TID #30 tablet Azithromycin [Zithromax] 500 mg PO DAILY #5 tab Is patient prescribed a controlled substance at d/c from ED?: No Referrals: Berto Melo MD [Primary Care Provider] - 1-2 days Time of Disposition: 16:15
[2025-02-12] MEDS: SODIUM CHLORIDE 0.9% 1,000 ML IV STA (13:14)
[2025-02-12 13:32] LABS: Basophils # (A) 0.11 10*3/uL (0.00-0.10); Basophils % (A) 1.6 %; Eosinophils # (A) 0.08 10*3/uL (0.04-0.35); Eosinophils % (A) 1.1 %; HCT 37.7 % (37.2-46.3); HGB 13.8 g/dL (12.0-15.0); Lymphocytes % (A) 21.4 %; MCH 32.8 pg (27.0-32.0); MCHC 36.6 g/dL (32.0-37.0); MCV 89.5 fL (80.0-97.0); Mean Platelet Volume 10.2 fL (9.5-12.2); Monocytes # (A) 0.82 10*3/uL (0.20-1.00); Monocytes % (A) 11.7 %; Neutrophils # (A) 4.47 10*3/uL (1.80-7.70); Neutrophils % (A) 63.8 %; Platelet Count 399 10*3/uL (140-440); RBC 4.21 10*6/uL (4.10-5.20); RDW 11.5 % (11.5-14.5); WBC 7.01 10*3/uL (4.50-10.00)
[2025-02-12 13:33] LABS: Appearance,Urine Clear (Clear); Bilirubin,Urine Negative (Negative); Blood,Urine Small (Negative); Color,Urine Yellow; Glucose,Urine (UA) Negative (Negative); Ketones,Urine Trace (Negative); Leukocyte Esterase,Urine Small (Negative); Mucus,Urine Occasional /hpf; Nitrite,Urine Negative (Negative); PH, Urine 6.5 (5.0-8.0); Protein,Urine 1+ (Negative); RBC,Urine 2 /hpf (0-5); Specific Gravity,Urine 1.028 (1.001-1.035); Squamous Epithelial Cell,Urine 2 /hpf (0-4); WBC,Urine 20 /hpf (0-5)
[2025-02-12 13:42] LABS: ALT 21 U/L (4-34); AST 29 U/L (14-36); African American GFR (CKD) >90 (>60 ml/min/1.73 sqM); Albumin 4.6 g/dL (3.5-5.0); Alkaline Phosphatase 77 U/L (38-126); Anion Gap 12 mmol/L; Blood Urea Nitrogen 15 mg/dL (7-17); Calcium 9.3 mg/dL (8.4-10.2); Carbon Dioxide 28 mmol/L (22-30); Chloride 93 mmol/L (98-107); Glucose 113 mg/dL (74-99); Lipase 816 U/L (23-300); Magnesium 2.2 mg/dL (1.6-2.3); Non-African American GFR(CKD) 86 (>60 ml/min/1.73 sqM); Potassium 3.9 mmol/L (3.5-5.1); Sodium 133 mmol/L (137-145); Total Bilirubin 0.6 mg/dL (0.2-1.3); Total Protein 7.6 g/dL (6.3-8.2)
--- NOTE | 2025-02-12 15:38 | CT ---
EXAMINATION TYPE: CT abdomen pelvis wo con DATE OF EXAM: 02/12/2025 3:25 PM COMPARISON: CT abdomen/pelvis 01/04/2023. CLINICAL INDICATION: Female, 59 years old with history of diarrhea, elevated lipase; Diarrhea, elevat ed lipase. TECHNIQUE: Axial CT abdomen pelvis wo con;Sagittal and coronal reformats were created on a separate workstation. Oral contrast used: without Oral Contrast (none if empty) CT DLP: 441.6 mGycm, Automated exposure control for dose reduction was used. FINDINGS: LOWER CHEST: Unremarkable ABDOMEN LIVER: Unremarkable GALLBLADDER AND BILE DUCTS: The gallbladder is surgically absent. PANCREAS: Unremarkable. SPLEEN: Unremarkable. ADRENAL GLANDS: Unremarkable. KIDNEYS AND URETERS: No evidence of hydronephrosis or renal calculus. The ureters are unremarkable. PELVIS BLADDER: No evidence for wall thickening or mass given limitations of exam. REPRODUCTIVE: Unremarkable. ABDOMEN & PELVIS STOMACH AND BOWEL: Stomach is underdistended but otherwise unremarkable. Postoperative changes near t he GE junction. Severe davila colonic wall thickening with adjacent mesenteric inflammatory changes. The re is likely reactive inflammatory changes involving the appendix. No drainable fluid collection/absc ess. No evidence of free air to suggest perforation at this time. PERITONEUM/RETROPERITONEUM: No evidence of pneumoperitoneum or free fluid. VASCULATURE: No evidence of aortic aneurysm. MUSCULOSKELETAL: No acute osseous abnormalities LYMPH NODES: No gross evidence for lymphadenopathy. SOFT TISSUE/ABDOMINAL WALL: Unremarkable IMPRESSION: Severe pancolonic wall thickening with adjacent mesenteric inflammatory changes suggesting infectious or inflammatory colitis. [facility], , 02/12/2025 3:35 PM
[2025-02-12 16:44] VITALS: BP 110/70; PULSE 82; TEMP 98
== END 2025-02-12 16:43 | disposition home or self-care (01) ==
LOC: EC 11:00
DX: K52.9 Noninfective gastroenteritis and colitis, unspecified (principal); Z88.0 Allergy status to penicillin; Z88.2 Allergy status to sulfonamides; Z88.6 Allergy status to analgesic agent; Z91.011 Allergy to milk products
CPT/HCPCS: 36415; 74176; 80053; 81001; 83605; 83690; 83735; 85025; 87324; 96360; 96361; 99285